=== PATIENT | male | born 1940 | race Caucasian/White ===

== ENCOUNTER 2017-04-24 14:49 | Inpatient (IN) | payer OTHER ==
[~2017-04-24] VITALS: Ht 170.2 cm; Wt 113.2 kg
[2017-04-24] MEDS ORDERED: LISI20TA3 PO (16:16)
[2017-04-24] MEDS ORDERED: SIMV20TA2 PO (16:16)
[2017-04-24] MEDS ORDERED: HYDR25TA4 PO (16:16)
[2017-04-24] MEDS ORDERED: TERA1CAP63 PO (16:16)
[2017-04-24] MEDS ORDERED: BUPR-79 PO (16:16)
[2017-04-24] MEDS ORDERED: FINA5TAB PO (16:16)
[2017-04-24] MEDS ORDERED: ASPI81TA28 PO (16:16)
--- NOTE | 2017-04-24 16:48 | DIAGNOSTIC IMAGING REPORT ---
L RIBS UNILATERAL WITH PA CHEST CLINICAL HISTORY: Left posterior rib pain following fall. COMPARISON STUDY: No previous studies for comparison. FINDINGS: A small left pneumothorax is noted with superior pleural separation of 2.1 cm. No acute rib fracture is identified although these are often occult by radiography. There is no right pneumothorax. Cardiac size is normal. Mediastinal contours are normal. IMPRESSION: Small left pneumothorax. No acute rib fracture identified although these may be occult by radiography. Short-term radiographic follow-up is recommended to reassess the pneumothorax. Findings discussed with Luis Sanchez at time of dictation. Electronically signed by: Jourdan Christian M.D. 04/24/2017 4:47 PM Dictated Date/Time: 04/24/2017 4:41 PM
[2017-04-24] MEDS ORDERED: OXYCODONE HCL IR 5 MG TAB (IMMEDIATE RELEASE) PO STA (16:51)
--- NOTE | 2017-04-24 17:33 | DIAGNOSTIC IMAGING REPORT ---
(CHEST) THORAX WITHOUT CLINICAL HISTORY: 76 years-old Male presenting with L pneumothorax. TECHNIQUE: Multidetector CT imaging of the chest was performed without the use of intravenous contrast. IV contrast: None. A dose lowering technique was used consistent with the principles of ALARA (as low as reasonably achievable). COMPARISON: Radiographs performed earlier the same day.. CT DOSE (mGy.cm): The estimated cumulative dose is 910.79 mGy.cm. 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 On soft tissue windows, normal thyroid and thoracic inlet. No axillary, supraclavicular, or mediastinal lymphadenopathy. Evaluation of the km limited without intravenous contrast. Atherosclerosis of the aorta. Normal heart size. Coronary artery and aortic valve calcification. No pericardial or pleural effusion. Few vague hypodensities at the left hepatic dome indeterminate but possibly cysts. Additional more prominent well-defined hypodensity in the medial left hepatic lobe indeterminate but likely hepatic cyst. Normal liver density. Partially visualized exophytic lesion arising from the left kidney, possibly cyst. On lung windows, small to moderate left pneumothorax. Extrapleural gas noted along the left anterior chest wall at the level of the chest wall musculature. No focal infiltrate or evidence of bleb/bulla the left lung. Vibration lung bases degraded by extensive respiratory motion artifact. Airways patent. On bone windows, acute fracture of the anterior left fourth rib. No additional rib fracture is immediately apparent. This fracture is nondisplaced. IMPRESSION: 1. Small to moderate left pneumothorax. The size of the pneumothorax has not significantly changed since the prior exam allowing for different imaging modalities. 2. Extrapleural gas along the left anterior chest wall associated with nondisplaced acute fracture of the anterior left fourth rib. The report will be called/faxed according to standard departmental protocol. Electronically signed by: Montez Stokes M.D. 04/24/2017 5:32 PM Dictated Date/Time: 04/24/2017 5:25 PM
--- NOTE | 2017-04-24 18:44 | EMERGENCY ROOM VISIT NOTE ---
ED Visit Note First contact with patient: 15:00 I have personally evaluated this patient examined her and reviewed the pertinent labs and data. I have discussed the case with Kris Sanchez, the physician technical administrative assistant and agree with the plan. Please refer to the PA note. This patient comes in after falling and hitting his back he has back pain in the left thoracic area. I chest x-ray was noted to have a small [address] shows a rib fractures with the pneumothorax. It does not appear to be appreciably changed. When I examined him, he appears in no distress. He has no increased work of breathing. He has some mild tender with movement. He did not hit his head. He has no abdominal pain. Given his age and the fact he lives 50 miles from the hospital, I did recommend we admit him for observation. At this point, I do not think he needs a chest tube but he may ultimately need one if the symptoms get worse or this expands. We have consulted Dr. Hernandez and he recommended the hospitalist admit the patient.
[2017-04-24 18:53] LABS: BASO % 0.1 %; BASO ABS # 0.01 K/uL (0-0.2); EOS % 0.4 %; EOS ABS # 0.04 K/uL (0-0.5); HEMOGLOBIN 14.3 g/dL (14.0-18.0); IG# 0.03 K/uL (0.00-0.02); LYMPH % 7.9 %; LYMPH ABS # 0.79 K/uL (1.2-3.4); MEAN CELL VOLUME 97.5 fL (80-100); MEAN CORPUSCULAR HEMOGLOBIN 32.4 pg (25-34); MEAN CORPUSCULAR HGB CONC 33.3 g/dl (32-36); MONO % 7.9 %; MONO ABS # 0.79 K/uL (0.11-0.59); NEUT % 83.4 %; NEUT ABS # 8.39 K/uL (1.4-6.5); PLATELET COUNT 141 K/uL (130-400); RED CELL DISTRIBUTION WIDTH CV 13.2 % (11.5-14.5); RED CELL DISTRIBUTION WIDTH SD 47.4 fL (36.4-46.3); WHITE BLOOD COUNT 10.05 K/uL (4.8-10.8)
--- NOTE | 2017-04-24 19:03 | EMERGENCY ROOM VISIT NOTE ---
History First contact with patient: 15:00 Chief Complaint: FALL Stated Complaint: FALL, SOB, LT SIDED BACK PAIN History of Present Illness The patient is a 76 year old male who presents to the Emergency Room with complaints of left posterior rib pain and mild shortness of breath after slipping and falling in his yard this afternoon while walking his dog. He reports slipping on a frozen puddle of water. The patient reports that he landed directly on his left rib region. He denies any head injury, neck pain or central back pain. He went into the house, and within approximately 3-4 minutes, started to feel short of breath. On the way to the emergency department via private transportation, the patient reported improvement of his shortness of breath. He denies any pain extending to the anterior ribs, chest or abdomen. He does not have any significant worsening pain that he has noticed with breathing. He denies any prior history of rib fractures, and currently rates his discomfort a 5 out of 10. He has not taken any medicines for his pain. Review of Systems 10 system review was performed and was negative except for pertinent positives and negatives as indicated in history of present illness Past Medical/Surgical History Medical Problems: (1) BPH (benign prostatic hyperplasia) (2) Hypercholesterolemia (3) Hypertension Family History Unremarkable Social History Smoking Status: Former Smoker Alcohol Use: occasionally Marital Status: Occupation Status: retired Current/Historical Medications Scheduled Aspirin (Aspirin Ec), 81 MG PO DAILY Bupropion (Wellbutrin Sr), 150 MG PO BID Finasteride (Proscar), 5 MG PO QPM Hydrochlorothiazide (Hctz), 25 MG PO DAILY Lisinopril (Prinivil), 20 MG PO QAM Simvastatin (Zocor), 20 MG PO QPM Terazosin Hcl (Hytrin), 10 MG PO QPM Physical Exam Vital Signs Date Time Temp Pulse Resp B/P (MAP) Pulse Ox O2 Delivery O2 Flow Rate FiO2 04/24/17 18:37 99 Mask 10.0 04/24/17 18:37 83 22 143/84 99 Mask 10.0 04/24/17 18:37 99 Mask 10.0 04/24/17 17:12 67 18 139/79 98 Room Air 04/24/17 14:54 36.4 80 20 159/79 96 Room Air Physical Exam CONSTITUTIONAL: Healthy and well nourished. Alert and oriented X 3 with positive affect. Patient does not appear in any significant distress on initial exam. HEENT: Normocephalic, atraumatic. Pupils equal, round and reactive. No subconjunctival hemorrhage, hemotympanum, epistaxis, raccoon's eyes or Cardoso sign. NECK: Full active range of motion without discomfort. RESPIRATORY: Clear to auscultation bilaterally with no wheezing, crackles, rhonchi or stridor. Deep breathing does cause mild left-sided rib discomfort. CARDIOVASCULAR: Regular rate and rhythm with no murmurs, rubs or gallops. GASTROINTESTINAL: Bowel sounds present in all quadrants. Soft and nontender to palpation. MUSCULOSKELETAL: Examination shows mild tenderness to palpation of a large region of the left posterolateral ribs. No focal tenderness through the central thoracolumbar spine, anterior costochondral joints, shoulder or left lateral hip. Distal pulses are intact. INTEGUMENTARY: No rash or other significant dermatologic conditions noted. NEUROLOGIC: No focal neurologic deficits noted. Upper and lower extremities are sensory intact. Medical Decision & Procedures ER Provider Diagnostic Interpretation: My interpretation of an ECG shows a bigeminal sinus rhythm of 74 bpm with a right bundle branch block. No ST elevations noted. No prior ECGs are available for comparison. My interpretation of left rib x-rays with a PA chest does not show any obvious fractures. A 2.1 cm left apical pneumothorax is noted. Radiologist report is as follows: L RIBS UNILATERAL WITH PA CHEST CLINICAL HISTORY: Left posterior rib pain following fall. COMPARISON STUDY: No previous studies for comparison. FINDINGS: A small left pneumothorax is noted with superior pleural separation of 2.1 cm. No acute rib fracture is identified although these are often occult by radiography. There is no right pneumothorax. Cardiac size is normal. Mediastinal contours are normal. IMPRESSION: Small left pneumothorax. No acute rib fracture identified although these may be occult by radiography. Short-term radiographic follow-up is recommended to reassess the pneumothorax. Findings discussed with Luis Sanchez at time of dictation. Noncontrast CT of the chest shows no acute change in size of the pleural apical pneumothorax size. A nondisplaced anterior left fourth rib fracture is also noted. Radiologist report is as follows: (CHEST) THORAX WITHOUT CLINICAL HISTORY: 76 years-old Male presenting with L pneumothorax. TECHNIQUE: Multidetector CT imaging of the chest was performed without the use of intravenous contrast. IV contrast: None. A dose lowering technique was used consistent with the principles of ALARA (as low as reasonably achievable). COMPARISON: Radiographs performed earlier the same day.. CT DOSE (mGy.cm): The estimated cumulative dose is 910.79 mGy.cm. 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 On soft tissue windows, normal thyroid and thoracic inlet. No axillary, supraclavicular, or mediastinal lymphadenopathy. Evaluation of the km limited without intravenous contrast. Atherosclerosis of the aorta. Normal heart size. Coronary artery and aortic valve calcification. No pericardial or pleural effusion. Few vague hypodensities at the left hepatic dome indeterminate but possibly cysts. Additional more prominent well-defined hypodensity in the medial left hepatic lobe indeterminate but likely hepatic cyst. Normal liver density. Partially visualized exophytic lesion arising from the left kidney, possibly cyst. On lung windows, small to moderate left pneumothorax. Extrapleural gas noted along the left anterior chest wall at the level of the chest wall musculature. No focal infiltrate or evidence of bleb/bulla the left lung. Vibration lung bases degraded by extensive respiratory motion artifact. Airways patent. On bone windows, acute fracture of the anterior left fourth rib. No additional rib fracture is immediately apparent. This fracture is nondisplaced. IMPRESSION: 1. Small to moderate left pneumothorax. The size of the pneumothorax has not significantly changed since the prior exam allowing for different imaging modalities. 2. Extrapleural gas along the left anterior chest wall associated with nondisplaced acute fracture of the anterior left fourth rib. Laboratory Results 04/24/17 18:38 Red Blood Count 4.41, Mean Corpuscular Volume 97.5, Mean Corpuscular Hemoglobin 32.4, Mean Corpuscular Hemoglobin Concent 33.3, Mean Platelet Volume 11.0, Neutrophils (%) (Auto) 83.4, Lymphocytes (%) (Auto) 7.9, Monocytes (%) (Auto) 7.9, Eosinophils (%) (Auto) 0.4, Basophils (%) (Auto) 0.1, Neutrophils # (Auto) 8.39, Lymphocytes # (Auto) 0.79, Monocytes # (Auto) 0.79, Eosinophils # (Auto) 0.04, Basophils # (Auto) 0.01 04/24/17 18:38 Test 04/24/17 18:38 White Blood Count 10.05 K/uL (4.8-10.8) Red Blood Count 4.41 M/uL (4.7-6.1) Hemoglobin 14.3 g/dL (14.0-18.0) Hematocrit 43.0 % (42-52) Mean Corpuscular Volume 97.5 fL (80-100) Mean Corpuscular Hemoglobin 32.4 pg (25-34) Mean Corpuscular Hemoglobin Concent 33.3 g/dl (32-36) Platelet Count 141 K/uL (130-400) Mean Platelet Volume 11.0 fL (7.4-10.4) Neutrophils (%) (Auto) 83.4 % Lymphocytes (%) (Auto) 7.9 % Monocytes (%) (Auto) 7.9 % Eosinophils (%) (Auto) 0.4 % Basophils (%) (Auto) 0.1 % Neutrophils # (Auto) 8.39 K/uL (1.4-6.5) Lymphocytes # (Auto) 0.79 K/uL (1.2-3.4) Monocytes # (Auto) 0.79 K/uL (0.11-0.59) Eosinophils # (Auto) 0.04 K/uL (0-0.5) Basophils # (Auto) 0.01 K/uL (0-0.2) RDW Standard Deviation 47.4 fL (36.4-46.3) RDW Coefficient of Variation 13.2 % (11.5-14.5) Immature Granulocyte % (Auto) 0.3 % Immature Granulocyte # (Auto) 0.03 K/uL (0.00-0.02) Anion Gap 6.0 mmol/L (3-11) Est Creatinine Clear Calc Drug Dose 65.7 ml/min Estimated GFR () 69.8 Estimated GFR (Non- 60.2 BUN/Creatinine Ratio 12.2 (10-20) Calcium Level 9.0 mg/dl (8.5-10.1) Total Creatine Kinase 191 U/L (39-308) The above labs were reviewed. Medications Administered Medications (Trade) Dose Ordered Sig/Robles Route Start Time Stop Time Status Last Admin Dose Admin Oxycodone HCl (Roxicodone Immediate Rel Tab) 5 mg NOW STAT PO 04/24/17 16:51 04/24/17 16:52 DC 04/24/17 17:11 5 MG ED Course Patient history and physical exam were performed. Nurse's notes were reviewed. Vital signs were reviewed and normal. O2 saturation is 96% on room air. The patient is not tachycardic. The patient refused any analgesics on initial exam. Left rib x-rays with a PA chest view shows a 2.1 cm left apical pneumothorax. No other obvious rib fractures are noted. The case was discussed with Dr. Christian, radiologist. A noncontrast CT of the chest was also ordered, showing no change in size of the pneumothorax, and a nondisplaced left anterior fourth rib fracture. The patient did return from initial chest x- ray, he did request of the for pain, and was administered OxyIR [address] does not show any difference in size of the apical pneumothorax. A nondisplaced left fourth anterior rib fracture was noted. The case was also discussed with Dr. Loja, ED attending physician who also performed an exam and discuss further treatment options for the patient. The patient and drove approximately one hour from [facility]. The patient does not have any closer hospitals to his home. We explained that if the patient does have further collapse of the lung, and adverse outcome could certainly occur. We suggested observation with repeat x-rays overnight. Dr. Loja suggested that I try to contact Dr. Miller, cardiothoracic surgeon. Unfortunately we're unable to contact him. I then spoke with Dr. Hernandez, general surgeon instrumentation specialist who suggested observation status, with the patient under the care of the [facility] service. I then discussed the case further with Dr. Del Rosario who came to the emergency department for further evaluation. Prior to transfer of care, an ECG was performed, showing a bigeminal sinus rhythm with right bundle branch block. There was no ST elevation or strain. Remaining labs were also reviewed and grossly normal. The patient was placed on oxygen at 10 L/m. Medical Decision Patient presents with left posterior rib pain and shortness of breath after falling today. Imaging studies today show a small to moderate left apical pneumothorax, and nondisplaced left anterior fourth rib fracture. I do feel that observation is warranted given the distance the patient lives from our facility, and certainly increased risk of further lung collapse. The patient is currently hemodynamically stable and maintaining good O2 saturations on room air. He did exhibit some shortness of breath with ambulation. [place] Drug Monitoring Program Search Results: patient reviewed within database, no issues identified Medication Reconcilliation Current Medication List: was personally reviewed by me Blood Pressure Screening Patient's blood pressure: Normal blood pressure Impression Primary Impression: Left apical pneumothorax Additional Impressions: Closed rib fracture Fall due to slipping on ice or snow Departure Information Referrals Jessika Andino M.D. (MEDICAL) (PCP) Patient Instructions My [facility] Problem Qualifiers Additional Impressions: Closed rib fracture Encounter type: initial encounter Rib fracture type: single rib Laterality : left Qualified Codes: S22.32XA - Fracture of one rib, left side, initial encounter for closed fracture Fall due to slipping on ice or snow Encounter type: initial encounter Qualified Codes: W00.9XXA - Unspecified fall due to ice and snow, initial encounter
--- NOTE | 2017-04-24 19:03 | Medical Consult ---
Consultation Date of Consultation: Apr 24, 2017. Attending Physician: Reason for Consultation: Lt pneumothorax History of Present Illness pt fell on back, Lt side earlier today- presented to ER found on CXR w/ Lt sided pneumothorax and CT showing same w/ rib fx. stable on o2 at present time Social History Smoking Status: Former Smoker Allergies Coded Allergies: Sulfa Antibiotics (Unverified Allergy, Unknown, UNKNOWN, 04/24/17) Review of Systems Constitutional: No fever, No chills Respiratory: + shortness of breath, No cough Cardiovascular: + chest pain Abdomen: No pain, No nausea Physical Exam Date Time Temp Pulse Resp B/P (MAP) Pulse Ox O2 Delivery O2 Flow Rate FiO2 04/24/17 18:37 99 Mask 10.0 04/24/17 18:37 83 22 143/84 99 Mask 10.0 04/24/17 18:37 99 Mask 10.0 04/24/17 17:12 67 18 139/79 98 Room Air 04/24/17 14:54 36.4 80 20 159/79 96 Room Air General Appearance: no apparent distress, + pertinent finding (has O2 in place) Eyes: sclerae normal Respiratory/Chest: no respiratory distress Abdomen/GI: soft Neurologic/Psych: alert Skin: warm/dry Laboratory Results Last 24 Hours Test 04/24/17 18:38 White Blood Count 10.05 K/uL Red Blood Count 4.41 M/uL Hemoglobin 14.3 g/dL Hematocrit 43.0 % Mean Corpuscular Volume 97.5 fL Mean Corpuscular Hemoglobin 32.4 pg Mean Corpuscular Hemoglobin Concent 33.3 g/dl Platelet Count 141 K/uL Mean Platelet Volume 11.0 fL Neutrophils (%) (Auto) 83.4 % Lymphocytes (%) (Auto) 7.9 % Monocytes (%) (Auto) 7.9 % Eosinophils (%) (Auto) 0.4 % Basophils (%) (Auto) 0.1 % Neutrophils # (Auto) 8.39 K/uL Lymphocytes # (Auto) 0.79 K/uL Monocytes # (Auto) 0.79 K/uL Eosinophils # (Auto) 0.04 K/uL Basophils # (Auto) 0.01 K/uL RDW Standard Deviation 47.4 fL RDW Coefficient of Variation 13.2 % Immature Granulocyte % (Auto) 0.3 % Immature Granulocyte # (Auto) 0.03 K/uL Assessment & Plan 04/24/17- adm for observation- O2, pain control recheck CXR in am or if acutely worsens. if remains stable , consider d/c tomorrow.
[2017-04-24 19:19] LABS: POTASSIUM 3.8 mmol/L (3.5-5.1)
[2017-04-24 19:23] LABS: CREATININE 1.17 mg/dl (0.60-1.40)
[2017-04-24 20:19] LABS: ALBUMIN 3.8 gm/dl (3.4-5.0)
[2017-04-24 20:33] VITALS: BP 170/98; PULSE 70; TEMP 36.9
[2017-04-24 20:34] VITALS: O2SAT 99; Ht 170.2 cm; Wt 113.2 kg
[2017-04-24] MEDS ORDERED: PROCHLORPERAZINE INJ 5 MG in SYRINGE 4 ML IV PRN (21:00)
[2017-04-24] MEDS ORDERED: MoRPHine SULFATE 4 MG/ML 1 ML CARP\\VIAL IV PRN (21:00)
[2017-04-24] MEDS ORDERED: KETOROLAC TROMETHAMINE 15 MG/ML VIAL IV. PRN (21:00)
[2017-04-24] MEDS ORDERED: TRAMADOL HCL 50 MG TAB PO PRN (21:00)
[2017-04-24] MEDS ORDERED: IBUPROFEN 200 MG TAB PO PRN (21:00)
[2017-04-24] MEDS ORDERED: ACETAMINOPHEN 325 MG TAB PO PRN (21:00)
[2017-04-24] MEDS ORDERED: LACTATED RINGER'S 1000ML 1,000 ML IV ONE (21:00)
[2017-04-24] MEDS: SIMVASTATIN 20 MG TAB PO SCH (21:38)
[2017-04-24] MEDS: BuPROPion SR 150 MG TABCR PO SCH (21:38)
[2017-04-24] MEDS: FINASTERIDE 5 MG TAB PO SCH (21:39)
[2017-04-24] MEDS: ENOXAPARIN 40 MG/0.4 ML SYR SC SCH (21:54)
[2017-04-24 23:06] VITALS: BP 154/68; PULSE 76; TEMP 37.2; O2SAT 98
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
[2017-04-25] VITALS (7 sets, daily range): BP systolic 121–153; BP diastolic 64–78; PULSE 60–77; TEMP 36.5–37.2; O2SAT 95–100
--- NOTE | 2017-04-25 06:28 | Surgery Progress Note ---
Surgery Progress Note Date of Service Apr 25, 2017. Subjective stable on O2 mask Objective Vital Signs: Date Time Temp Pulse Resp B/P (MAP) Pulse Ox O2 Delivery O2 Flow Rate FiO2 04/25/17 04:00 37.2 62 18 130/69 (89) 100 Room Air 04/25/17 04:00 99 Mask 10.0 04/25/17 00:00 99 Mask 10.0 04/24/17 23:06 37.2 76 20 154/68 (96) 98 Oxymask 10.0 04/24/17 20:34 99 Mask 10.0 04/24/17 20:33 36.9 70 18 170/98 04/24/17 20:01 67 16 160/94 99 Mask 10.0 04/24/17 18:37 99 Mask 10.0 04/24/17 18:37 83 22 143/84 99 Mask 10.0 04/24/17 18:37 99 Mask 10.0 04/24/17 17:12 67 18 139/79 98 Room Air 04/24/17 14:54 36.4 80 20 159/79 96 Room Air General Appearance: no apparent distress Respiratory/Chest: no respiratory distress Laboratory Results: Results Past 24 Hours Test 04/24/17 18:38 04/25/17 04:44 Range/Units White Blood Count 10.05 4.8-10.8 K/uL Red Blood Count 4.41 4.7-6.1 M/uL Hemoglobin 14.3 14.0-18.0 g/dL Hematocrit 43.0 42-52 % Mean Corpuscular Volume 97.5 80-100 fL Mean Corpuscular Hemoglobin 32.4 25-34 pg Mean Corpuscular Hemoglobin Concent 33.3 32-36 g/dl Platelet Count 141 130-400 K/uL Mean Platelet Volume 11.0 7.4-10.4 fL Neutrophils (%) (Auto) 83.4 % Lymphocytes (%) (Auto) 7.9 % Monocytes (%) (Auto) 7.9 % Eosinophils (%) (Auto) 0.4 % Basophils (%) (Auto) 0.1 % Neutrophils # (Auto) 8.39 1.4-6.5 K/uL Lymphocytes # (Auto) 0.79 1.2-3.4 K/uL Monocytes # (Auto) 0.79 0.11-0.59 K/uL Eosinophils # (Auto) 0.04 0-0.5 K/uL Basophils # (Auto) 0.01 0-0.2 K/uL RDW Standard Deviation 47.4 36.4-46.3 fL RDW Coefficient of Variation 13.2 11.5-14.5 % Immature Granulocyte % (Auto) 0.3 % Immature Granulocyte # (Auto) 0.03 0.00-0.02 K/uL Prothrombin Time 10.5 9.0-12.0 SECONDS Prothromb Time International Ratio 1.0 0.9-1.1 Sodium Level 140 136-145 mmol/L Potassium Level 3.8 3.5-5.1 mmol/L Chloride Level 103 98-107 mmol/L Carbon Dioxide Level 31 21-32 mmol/L Anion Gap 6.0 3-11 mmol/L Blood Urea Nitrogen 14 7-18 mg/dl Creatinine 1.17 0.60-1.40 mg/dl Est Creatinine Clear Calc Drug Dose 65.7 ml/min Estimated GFR () 69.8 Estimated GFR (Non- 60.2 BUN/Creatinine Ratio 12.2 10-20 Random Glucose 111 70-99 mg/dl Calcium Level 9.0 8.5-10.1 mg/dl Magnesium Level 2.0 1.8-2.4 mg/dl Total Bilirubin 0.3 0.2-1 mg/dl Direct Bilirubin 0.1 0-0.2 mg/dl Aspartate Amino Transf (AST/SGOT) 24 15-37 U/L Alanine Aminotransferase (ALT/SGPT) 28 12-78 U/L Alkaline Phosphatase 73 45-117 U/L Total Creatine Kinase 191 39-308 U/L Troponin I 0.033 0-0.045 ng/ml Total Protein 7.0 6.4-8.2 gm/dl Albumin 3.8 3.4-5.0 gm/dl Lipase 375 73-393 U/L Assessment & Plan 04/25/17- Lt pneumothorax from fall/ rib fx probably ok with O2 NC- check cxr discussed with Dr Miller- will try to avoid chest tube- may need additional day in hospital checked CXR- pneumo a little larger- will need to stay in hospital until stable. No chest tube unless absolutely necessary. Cont O2
[2017-04-25 07:34] LABS: BASO % 0.3 %; BASO ABS # 0.02 K/uL (0-0.2); EOS % 4.2 %; HEMOGLOBIN 12.9 g/dL (14.0-18.0); IG# 0.02 K/uL (0.00-0.02); LYMPH ABS # 1.13 K/uL (1.2-3.4); MEAN CELL VOLUME 98.3 fL (80-100); MEAN CORPUSCULAR HEMOGLOBIN 31.7 pg (25-34); MEAN CORPUSCULAR HGB CONC 32.3 g/dl (32-36); MEAN PLATELET VOLUME 10.6 fL (7.4-10.4); MONO ABS # 0.92 K/uL (0.11-0.59); NEUT % 66.2 %; NEUT ABS # 4.69 K/uL (1.4-6.5); PLATELET COUNT 117 K/uL (130-400); RED CELL DISTRIBUTION WIDTH CV 13.5 % (11.5-14.5); RED CELL DISTRIBUTION WIDTH SD 48.6 fL (36.4-46.3); WHITE BLOOD COUNT 7.08 K/uL (4.8-10.8)
[2017-04-25] MEDS: BuPROPion SR 150 MG TABCR PO SCH ×2 (08:12→17:53)
[2017-04-25] MEDS: LISINOPRIL 20 MG TAB PO SCH (08:12)
[2017-04-25] MEDS: ASPIRIN 81 MG ECTAB PO SCH (08:13)
--- NOTE | 2017-04-25 09:22 | DIAGNOSTIC IMAGING REPORT ---
CHEST 2 VIEWS ROUTINE CLINICAL HISTORY: Assess pneumothorax. COMPARISON STUDY: Chest CT April 24, 2017 5:04 PM. FINDINGS: A moderate left pneumothorax has mildly increased in size since CT of April 24, 2017. Superior pleural separation measures 3.4 cm. Mild left lower lung opacity suggests atelectasis. Cardiomediastinal silhouette is stable. There is no evidence for pulmonary edema. There is no right pneumothorax. There may be a trace left pleural effusion. IMPRESSION: Mild increase in size of a moderate left pneumothorax since CT of April 24, 2017. Electronically signed by: Jourdan Christian M.D. 04/25/2017 9:20 AM Dictated Date/Time: 04/25/2017 9:16 AM
--- NOTE | 2017-04-25 10:39 | Progress Note ---
Internal Med Progress Note Date of Service: Apr 25, 2017. Provider Documentation: SUBJECTIVE: Seen and examined at bedside Reports left sided pleuritic chest pain Denies SOB, dizziness No other complaints Family at bedside OBJECTIVE: Vital Signs-as noted below Physical Exam: General Appearance:Obese, no apparent distress Head: normocephalic, Atraumatic Eyes: normal inspection, EOMI, PERRL Neck: supple, Trachea midline Respiratory/Chest: Decreased breath sounds on left , CTA Cardiovascular: S1, S2, No murmur Abdomen/GI:Soft, Non tender, Bowel sounds present Extremities/Musculoskelatal:normal inspection, no edema Neurologic/Psych:AAOX3, grossly no focal neurological deficits Skin: normal color, warm Lab data as noted below. ASSESSMENT & PLAN: Left Pneumothorax 2/2 Rib # S/P Mechanical Fall Monitor in Tele CT: Small to moderate left pneumothorax. Nondisplaced acute fracture of the anterior left fourth rib. Oxygen support Daily CXR Pain control May need chest tube if Pneumothorax worsens Appreciate Surgery Input HTN: Continue Lisinopril Also on Hytrin monitor HLP: Continue statin BPH: Continue Hytrin Past tobacco abuse. DVT Px: Lovenox SQ Code Status: Full Code Disposition: Expect to discharge home when stable Vital Signs: Date Time Temp Pulse Resp B/P (MAP) Pulse Ox O2 Delivery O2 Flow Rate FiO2 04/25/17 08:00 37.0 63 18 125/71 (89) 95 Room Air 04/25/17 08:00 Nasal Cannula 4.0 04/25/17 04:00 37.2 62 18 130/69 (89) 100 Room Air 04/25/17 04:00 99 Mask 10.0 04/25/17 00:00 99 Mask 10.0 04/24/17 23:06 37.2 76 20 154/68 (96) 98 Oxymask 10.0 04/24/17 20:34 99 Mask 10.0 04/24/17 20:33 36.9 70 18 170/98 04/24/17 20:01 67 16 160/94 99 Mask 10.0 04/24/17 18:37 99 Mask 10.0 04/24/17 18:37 83 22 143/84 99 Mask 10.0 04/24/17 18:37 99 Mask 10.0 04/24/17 17:12 67 18 139/79 98 Room Air 04/24/17 14:54 36.4 80 20 159/79 96 Room Air Lab Results: Results Past 24 Hours Test 04/24/17 18:38 04/25/17 06:55 Range/Units White Blood Count 10.05 7.08 4.8-10.8 K/uL Red Blood Count 4.41 4.07 4.7-6.1 M/uL Hemoglobin 14.3 12.9 14.0-18.0 g/dL Hematocrit 43.0 40.0 42-52 % Mean Corpuscular Volume 97.5 98.3 80-100 fL Mean Corpuscular Hemoglobin 32.4 31.7 25-34 pg Mean Corpuscular Hemoglobin Concent 33.3 32.3 32-36 g/dl Platelet Count 141 117 130-400 K/uL Mean Platelet Volume 11.0 10.6 7.4-10.4 fL Neutrophils (%) (Auto) 83.4 66.2 % Lymphocytes (%) (Auto) 7.9 16.0 % Monocytes (%) (Auto) 7.9 13.0 % Eosinophils (%) (Auto) 0.4 4.2 % Basophils (%) (Auto) 0.1 0.3 % Neutrophils # (Auto) 8.39 4.69 1.4-6.5 K/uL Lymphocytes # (Auto) 0.79 1.13 1.2-3.4 K/uL Monocytes # (Auto) 0.79 0.92 0.11-0.59 K/uL Eosinophils # (Auto) 0.04 0.30 0-0.5 K/uL Basophils # (Auto) 0.01 0.02 0-0.2 K/uL RDW Standard Deviation 47.4 48.6 36.4-46.3 fL RDW Coefficient of Variation 13.2 13.5 11.5-14.5 % Immature Granulocyte % (Auto) 0.3 0.3 % Immature Granulocyte # (Auto) 0.03 0.02 0.00-0.02 K/uL Prothrombin Time 10.5 9.0-12.0 SECONDS Prothromb Time International Ratio 1.0 0.9-1.1 Sodium Level 140 136-145 mmol/L Potassium Level 3.8 3.5-5.1 mmol/L Chloride Level 103 98-107 mmol/L Carbon Dioxide Level 31 21-32 mmol/L Anion Gap 6.0 3-11 mmol/L Blood Urea Nitrogen 14 7-18 mg/dl Creatinine 1.17 0.60-1.40 mg/dl Est Creatinine Clear Calc Drug Dose 65.7 ml/min Estimated GFR () 69.8 Estimated GFR (Non- 60.2 BUN/Creatinine Ratio 12.2 10-20 Random Glucose 111 70-99 mg/dl Calcium Level 9.0 8.5-10.1 mg/dl Magnesium Level 2.0 1.8-2.4 mg/dl Total Bilirubin 0.3 0.2-1 mg/dl Direct Bilirubin 0.1 0-0.2 mg/dl Aspartate Amino Transf (AST/SGOT) 24 15-37 U/L Alanine Aminotransferase (ALT/SGPT) 28 12-78 U/L Alkaline Phosphatase 73 45-117 U/L Total Creatine Kinase 191 39-308 U/L Troponin I 0.033 0-0.045 ng/ml Total Protein 7.0 6.4-8.2 gm/dl Albumin 3.8 3.4-5.0 gm/dl Lipase 375 73-393 U/L
[2017-04-25] MEDS: SIMVASTATIN 20 MG TAB PO SCH (21:03)
[2017-04-25] MEDS: DOCUSATE SODIUM/SENNA 50/8.6MG TAB PO SCH (21:03)
[2017-04-25] MEDS: FINASTERIDE 5 MG TAB PO SCH (21:04)
[2017-04-25] MEDS: ENOXAPARIN 40 MG/0.4 ML SYR SC SCH (21:07)
--- NOTE | 2017-04-26 06:31 | Surgery Progress Note ---
Surgery Progress Note Date of Service Apr 26, 2017. Subjective feels ok, slept well Objective Vital Signs: Date Time Temp Pulse Resp B/P (MAP) Pulse Ox O2 Delivery O2 Flow Rate FiO2 04/25/17 23:45 Nasal Cannula 04/25/17 23:05 36.7 63 16 121/71 (88) 99 Nasal Cannula 4.0 04/25/17 18:00 36.6 60 16 153/78 (103) 100 Nasal Cannula 4.0 04/25/17 18:00 Nasal Cannula 4.0 04/25/17 16:00 Nasal Cannula 4.0 04/25/17 15:12 37.0 77 16 124/76 (92) 97 Nasal Cannula 4.0 04/25/17 12:12 36.5 60 16 126/64 (84) 97 Nasal Cannula 04/25/17 12:00 Nasal Cannula 4.0 04/25/17 08:00 37.0 63 18 125/71 (89) 95 Room Air 04/25/17 08:00 Nasal Cannula 4.0 General Appearance: no apparent distress Respiratory/Chest: no respiratory distress Laboratory Results: Results Past 24 Hours Test 04/25/17 06:55 04/26/17 05:54 Range/Units White Blood Count 7.08 4.8-10.8 K/uL Red Blood Count 4.07 4.7-6.1 M/uL Hemoglobin 12.9 14.0-18.0 g/dL Hematocrit 40.0 42-52 % Mean Corpuscular Volume 98.3 80-100 fL Mean Corpuscular Hemoglobin 31.7 25-34 pg Mean Corpuscular Hemoglobin Concent 32.3 32-36 g/dl Platelet Count 117 130-400 K/uL Mean Platelet Volume 10.6 7.4-10.4 fL Neutrophils (%) (Auto) 66.2 % Lymphocytes (%) (Auto) 16.0 % Monocytes (%) (Auto) 13.0 % Eosinophils (%) (Auto) 4.2 % Basophils (%) (Auto) 0.3 % Neutrophils # (Auto) 4.69 1.4-6.5 K/uL Lymphocytes # (Auto) 1.13 1.2-3.4 K/uL Monocytes # (Auto) 0.92 0.11-0.59 K/uL Eosinophils # (Auto) 0.30 0-0.5 K/uL Basophils # (Auto) 0.02 0-0.2 K/uL RDW Standard Deviation 48.6 36.4-46.3 fL RDW Coefficient of Variation 13.5 11.5-14.5 % Immature Granulocyte % (Auto) 0.3 % Immature Granulocyte # (Auto) 0.02 0.00-0.02 K/uL Assessment & Plan 04/26/17- stable, looks very good- breathing well will check cxr- if stable - d/c home with f/u Dr Miller on Thu/Thu this week CXR much improved- ok to d/c home with plan above 04/25/17- Lt pneumothorax from fall/ rib fx probably ok with O2 NC- check cxr discussed with Dr Miller- will try to avoid chest tube- may need additional day in hospital checked CXR- pneumo a little larger- will need to stay in hospital until stable. No chest tube unless absolutely necessary. Cont O2 04/25/17- Lt pneumothorax from fall/ rib fx probably ok with O2 NC- check cxr discussed with Dr Miller- will try to avoid chest tube- may need additional day in hospital checked CXR- pneumo a little larger- will need to stay in hospital until stable. No chest tube unless absolutely necessary. Cont O2
--- NOTE | 2017-04-26 06:35 | Discharge Instructions ---
Discharge Instructions Date of Service Apr 26, 2017. Admission Reason for Admission: Pnuemothorax Discharge Discharge Diagnosis / Problem: [place]othorax Discharge Goals Goal(s): Decrease discomfort, Improve function Activity Recommendations Activity Limitations: as noted below Lifting Limitations: no more than 10 pounds Exercise/Sports Limitations: until after follow-up appointment May Resume Sexual Activity: after follow-up appointment Shower/Bathe: no limitations Driving or Machine Use: resume 3 days after discharge . Current Hospital Diet Patient's current hospital diet: AHA Diet (Heart Healthy) Discharge Diet Recommended Diet: Regular Diet Pending Studies Studies pending at discharge: no Medical Emergencies . Who to Call and When: Medical Emergencies: If at any time you feel your situation is an emergency, please call 911 immediately. . Non-Emergent Contact Non-Emergency issues call your: Primary Care Provider, Surgeon . "Provider Documentation" section prepared by Kush Hernandez. . VTE Core Measure Inpt VTE Proph given/why not?: SCD's
[2017-04-26 06:52] LABS: HEMOGLOBIN 12.7 g/dL (14.0-18.0); MEAN CELL VOLUME 98.3 fL (80-100); MEAN CORPUSCULAR HEMOGLOBIN 30.5 pg (25-34); MEAN PLATELET VOLUME 10.9 fL (7.4-10.4); PLATELET COUNT 122 K/uL (130-400); RED CELL DISTRIBUTION WIDTH CV 13.6 % (11.5-14.5); RED CELL DISTRIBUTION WIDTH SD 48.5 fL (36.4-46.3); WHITE BLOOD COUNT 6.37 K/uL (4.8-10.8)
[2017-04-26 07:26] LABS: CALCIUM 8.9 mg/dl (8.5-10.1); CREATININE 0.98 mg/dl (0.60-1.40); POTASSIUM 3.6 mmol/L (3.5-5.1)
[2017-04-26 07:30] VITALS: BP 136/77; PULSE 59; TEMP 36.8; O2SAT 96
--- NOTE | 2017-04-26 07:32 | DIAGNOSTIC IMAGING REPORT ---
CHEST ONE VIEW PORTABLE CLINICAL HISTORY: 76 years-old Male presenting with assess pneumo. TECHNIQUE: Portable upright AP view of the chest was obtained. COMPARISON: 04/25/2017. FINDINGS: Atherosclerosis of the aortic arch. Cardiac silhouette normal in size. Lungs clear. Significant interval decreased size of left pneumothorax, which now has a pleural separation of 8 mm at the apex. Osseous structures normal. Upper abdomen normal. IMPRESSION: 1. Significant interval decrease in size of the now small left apical pneumothorax. Electronically signed by: Montez Stokes M.D. 04/26/2017 7:30 AM Dictated Date/Time: 04/26/2017 7:29 AM
[2017-04-26] MEDS: ASPIRIN 81 MG ECTAB PO SCH (08:56)
[2017-04-26] MEDS: BuPROPion SR 150 MG TABCR PO SCH (08:56)
[2017-04-26] MEDS: LISINOPRIL 20 MG TAB PO SCH (08:57)
[2017-04-26] MEDS: DOCUSATE SODIUM/SENNA 50/8.6MG TAB PO SCH (08:57)
[2017-04-26 11:17] VITALS: PULSE 59; O2SAT 96
--- NOTE | 2017-04-26 11:53 | Progress Note ---
Internal Med Progress Note Date of Service: Apr 26, 2017. Provider Documentation: SUBJECTIVE: Seen and examined at bedside Only has mild soreness on back Denies SOB, dizziness No other complaints Family at bedside OBJECTIVE: Vital Signs-as noted below Physical Exam: General Appearance:Obese, no apparent distress Head: normocephalic, Atraumatic Eyes: normal inspection, EOMI, PERRL Neck: supple, Trachea midline Respiratory/Chest: Normal breath sounds on left , CTA Cardiovascular: S1, S2, No murmur Abdomen/GI:Soft, Non tender, Bowel sounds present Extremities/Musculoskelatal:normal inspection, no edema Neurologic/Psych:AAOX3, grossly no focal neurological deficits Skin: normal color, warm Lab data as noted below. ASSESSMENT & PLAN: Left Pneumothorax 2/2 Rib # S/P Mechanical Fall Monitor in Tele CT: Small to moderate left pneumothorax. Nondisplaced acute fracture of the anterior left fourth rib. Oxygen support Daily CXR Pain control Repeat CXR: Pneumothorax much improved Appreciate Surgery Input Needs follow up with CT surgery as outpatient HTN: Continue Lisinopril Also on Hytrin monitor HLP: Continue statin BPH: Continue Hytrin Past tobacco abuse. DVT Px: Lovenox SQ Code Status: Full Code Disposition: Plan to discharge home today Follow up with (CT surgery) in 2-3 days as advised Follow up with your PCP on 04/30/17 at 11:05AM Seek immediate medical attention if your symptoms reoccur or worsen Vital Signs: Date Time Temp Pulse Resp B/P (MAP) Pulse Ox O2 Delivery O2 Flow Rate FiO2 04/26/17 11:17 59 96 04/26/17 07:53 Room Air 04/26/17 07:30 36.8 59 16 136/77 (96) 96 Nasal Cannula 1.0 04/25/17 23:45 Nasal Cannula 04/25/17 23:05 36.7 63 16 121/71 (88) 99 Nasal Cannula 4.0 04/25/17 18:00 36.6 60 16 153/78 (103) 100 Nasal Cannula 4.0 04/25/17 18:00 Nasal Cannula 4.0 04/25/17 16:00 Nasal Cannula 4.0 04/25/17 15:12 37.0 77 16 124/76 (92) 97 Nasal Cannula 4.0 04/25/17 12:12 36.5 60 16 126/64 (84) 97 Nasal Cannula 04/25/17 12:00 Nasal Cannula 4.0 Lab Results: Results Past 24 Hours Test 04/26/17 05:54 Range/Units White Blood Count 6.37 4.8-10.8 K/uL Red Blood Count 4.17 4.7-6.1 M/uL Hemoglobin 12.7 14.0-18.0 g/dL Hematocrit 41.0 42-52 % Mean Corpuscular Volume 98.3 80-100 fL Mean Corpuscular Hemoglobin 30.5 25-34 pg Mean Corpuscular Hemoglobin Concent 31.0 32-36 g/dl RDW Standard Deviation 48.5 36.4-46.3 fL RDW Coefficient of Variation 13.6 11.5-14.5 % Platelet Count 122 130-400 K/uL Mean Platelet Volume 10.9 7.4-10.4 fL Sodium Level 140 136-145 mmol/L Potassium Level 3.6 3.5-5.1 mmol/L Chloride Level 104 98-107 mmol/L Carbon Dioxide Level 31 21-32 mmol/L Anion Gap 5.0 3-11 mmol/L Blood Urea Nitrogen 11 7-18 mg/dl Creatinine 0.98 0.60-1.40 mg/dl Est Creatinine Clear Calc Drug Dose 77.1 ml/min Estimated GFR () 86.5 Estimated GFR (Non- 74.6 BUN/Creatinine Ratio 11.7 10-20 Random Glucose 96 70-99 mg/dl Calcium Level 8.9 8.5-10.1 mg/dl Magnesium Level 2.1 1.8-2.4 mg/dl
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
[2017-04-26 12:03] VITALS: BP 136/77; PULSE 59; TEMP 36.8; O2SAT 96
== END 2017-04-26 12:22 | disposition home or self-care (01) | DRG 200 ==
LOC: C.EDB 14:50 → C.2T 19:42 → ENRESERV 19:52 → C.MSW 04-25 18:06
PROVIDERS: ADMIT Internal Medicine; ATTEND Internal Medicine
DX: S27.0XXA Traumatic pneumothorax, initial encounter (principal); S22.32XA Fracture of one rib, left side, initial encounter for closed fracture; Z79.82 Long term (current) use of aspirin; I10 Essential (primary) hypertension; E78.5 Hyperlipidemia, unspecified; N40.0 Benign prostatic hyperplasia without lower urinary tract symptoms; F39 Unspecified mood [affective] disorder; Z82.49 Family history of ischemic heart disease and other diseases of the circulatory system; Z87.891 Personal history of nicotine dependence; W01.0XXA Fall on same level from slipping, tripping and stumbling without subsequent striking against object, initial encounter

== ENCOUNTER → 2017-04-28 | Outpatient (CLI) | payer OTHER ==
[~2017-04-28] MED LIST: ASPI81TA28 PO; BUPR-79 PO; FINA5TAB PO; HYDR25TA4 PO; LISI20TA3 PO; SIMV20TA2 PO; TERA1CAP63 PO
--- NOTE | 2017-04-28 13:14 | DIAGNOSTIC IMAGING REPORT ---
CHEST 2 VIEWS ROUTINE CLINICAL HISTORY: J93.9 [id number] COMPARISON STUDY: 04/26/2017 FINDINGS: The left apical pneumothorax has a pleural separation of 14 mm. The heart is normal in size. There is no focal pulmonary consolidation. There is a small right pleural effusion.[ IMPRESSION: 1. Slight interval increase in the size of the small left apical pneumothorax with a pleural separation 14 mm 2. Small right pleural effusion Electronically signed by: Krzysztof Vigil M.D. 04/28/2017 1:12 PM Dictated Date/Time: 04/28/2017 1:08 PM
== END | disposition home or self-care (01) ==
LOC: C.RAD1850 12:55
PROVIDERS: ATTEND Surgery
DX: J93.9 Pneumothorax, unspecified (principal); J90 Pleural effusion, not elsewhere classified

== ENCOUNTER → 2017-05-07 | Outpatient (CLI) | payer OTHER ==
--- NOTE | 2017-05-07 09:49 | DIAGNOSTIC IMAGING REPORT ---
CHEST 2 VIEWS ROUTINE HISTORY: 76 years-old Male J93.9 [id number] follow-up study in a patient with pneumothorax. COMPARISON: Chest radiographs 04/28/2017 and 04/26/2017 TECHNIQUE: PA and lateral views of the chest FINDINGS: Cardiomediastinal and hilar silhouettes are within normal limits. Atherosclerosis of the aorta. There are previously noted small left apical pneumothorax is no longer identified. No pleural effusion, focal airspace consolidation or overt pulmonary edema. Degenerative changes are seen within the spine and shoulders. IMPRESSION: 1. No acute process of the chest. 2. Resolution of the previously noted small left apical pneumothorax. The above report was generated using voice recognition software. It may contain grammatical, syntax or spelling errors. Electronically signed by: Bronson Hurd M.D. 05/07/2017 9:48 AM Dictated Date/Time: 05/07/2017 9:46 AM
== END | disposition home or self-care (01) ==
LOC: C.RAD1850 09:34
PROVIDERS: ATTEND Physician Assistant
DX: J93.9 Pneumothorax, unspecified (principal)

== ENCOUNTER 2023-04-15 14:17 | Inpatient (IN) ==
--- NOTE | 2023-04-15 14:51 | Emergency Department Note ---
Impression & Plan New onset a-fib, Syncope and collapse ED Provider Note NAME: ADRIANE GUNDERSON AGE: 82 SEX: M : 1940 ARRIVES VIA: Ambulance INFORMANT: Patient, ED PROVIDER(S): Orlando Miles MD CHIEF COMPLAINT: Syncope MEDICAL DECISION MAKING: Patient presents due to concern for syncopal event. Unknown is whether the patient had syncope versus seizure. The patient was noted to be in A-fib on the monitor which is new for the patient. IV was established and blood work was obtained. EKG confirms A-fib. CT of the head also ordered. Patient's blood work shows a normal white counts with mild anemia hemoglobin of 13 platelet count is unremarkable. The patient's kidney function unremarkable BSG 128 but nonfasting. Initial troponin 24. BNP is not elevated TSH normal. The patient urinalysis does not show evidence of obvious blood or infection. CT head negative. Patient was started on heparin. I did inform the patient patient's family bedside with findings and plan of care they are comfortable with this plan. I did speak with Dr. Peña and the patient was admitted to the medicine service. Critical Care: I have personally spent 37 minutes of critical care time in direct management of this patient. This includes bedside care, interpretation of diagnostic studies, and testing, discussion with consultants, patient, and family members, and other require inpatient management activities. This 37 minutes is in excess of all separately billable procedures. Discussion w/ other healthcare providers: Dr. Peña inpatient medicine service Prior /Outside records reviewed: None Differential diagnosis: Vasovagal event, dehydration, infection, hypoglycemia, electrolyte abnormalities, arrhythmia, pulmonary embolism, seizure among others were considered. Diagnostics, as interpreted by me: ECG: A-fib, rate of 62, wide QRS, right bundle branch block pattern, left axis deviation. No obvious ST elevations Cardiac monitoring: An order was placed for continuous cardiac monitoring. The monitor shows a rate of 65 with irregularly irregular rhythm. Patient was placed on pulse oximetry Medical decision rules: None Imaging studies: I informally interpreted the patient's chest x-ray which does not show obvious pneumonia or pneumothorax with formal report to follow. Informally interpreted the patient's CT head which does not show obvious ICH HPI: Patient presents due to concern for an episode of syncope. Patient denies any chest pains but has suffered from chronic shortness of breath which has been ongoing. Patient denies any falls or trauma. Patient reportedly was sitting down to eat some lunch as they were getting grilled cheese and chicken Rasheeda. The patient did not have any choking episode but the states that the patient's head rolled back and had upper extremity shaking unknown as to whether or not he lower extremity shaking. This lasted for approximately 30 seconds in duration. She thought that maybe he was struggling to breathe and tried to bring his head up a little bit. Patient then came to and was reportedly confused. No prior history of any stroke or seizure. Patient states that he does feel little bit nauseous but no vomiting. Patient denies any numbness tingling or focal weakness. Chronic shortness of breath but this is unchanged and currently not at rest. He does have exertional symptoms but denies orthopnea. Patient denies any prior history of heart or lung disease. Non- smoker. Patient denies any alcohol or drug use. PAST MEDICAL HISTORY: See Below PAST SURGICAL HISTORY: See Below SOCIAL HISTORY: See Below HOME MEDICATIONS: See Below ALLERGIES: See Below VITALS: See Below PHYSICAL EXAMINATION: GENERAL: NAD, non-toxic. EYE EXAM: Normal conjunctiva. PERRL, no anisocoria and EOM's grossly intact w/o pain. OROPHARYNX: Moist mucus membranes, grossly normal dentition. NECK: Supple, no nuchal rigidity, no adenopathy, non-tender. No signs of meningismus. FROM of the neck with good chin to chest and neck extension. No stridor. LUNGS: Clear to auscultation. Normal chest wall mechanics. HEART: Irregular irregular, no MRG. ABDOMEN: Abdomen soft, non-tender, no masses, no rebound or guarding. BACK: No CVA TTP. SKIN: No rashes and no bruising. UPPER EXTREMITIES: Upper extremities are grossly normal. Resting tremor of the right upper extremity LOWER EXTREMITIES: Grossly normal, 1+ bilateral lower extremity edema. NEURO EXAM: A&O x3, cranial nerves II-XII grossly intact, normal speech, moves all 4 extremities. Good [id number], no drift and no sensory deficits. Past Med/Surg History Medical History Morbid obesity Dyslipidemia CKD (chronic kidney disease), stage III BPH (benign prostatic hyperplasia) Hypertension Hypercholesterolemia Surgical History H/O ventral hernia repair H/O cataract removal with insertion of prosthetic lens Social History Smoking Status: Former smoker Second Hand Exposure: No; Do You Dip or Chew Tobacco: No; Tobacco Cessation Education Requested by Patient: No Hx Alcohol Use: No Hx Substance Use: No Preferred Language: Vincentian Communication Ability: Effective Interior Design Professional Required: No Beliefs That Will Affect Care: None Current Living Situation: Spouse Other Information That Helps Us Care for You: No Feels Safe at Home: Yes Safety Concerns: Feels Safe At This Time Assistive Devices: None Allergies Allergies Allergy/AdvReac Type Severity Reaction Status Date / Time Sulfa (Sulfonamide Allergy Unknown UNKNOWN Unverified 04/15/23 15:42 Antibiotics) Home Meds Home Medications Medication Instructions Recorded Confirmed bupropion HCl 150 mg tablet,12 hr 300 mg PO QAM 04/15/23 04/15/23 sustained-release finasteride 5 mg tablet 5 mg PO QPM 04/15/23 04/15/23 hydrochlorothiazide 25 mg tablet 25 mg PO DAILY 04/15/23 04/15/23 lisinopril 20 mg tablet 20 mg PO QAM 04/15/23 04/15/23 simvastatin 20 mg tablet 20 mg PO HS 04/15/23 04/15/23 terazosin 10 mg capsule 10 mg PO HS 04/15/23 04/15/23 Results & Data (ED) Vital Signs Vital Signs - 24 hr 04/15/23 14:30 04/15/23 14:31 04/15/23 15:11 Temperature 36.4 C L Temperature Source Oral Pulse Rate 72 63 65 Pulse Rate from SpO2 Sensor Pulse Rhythm Regular Regular Respiratory Rate 24 20 Respiratory Effort / Characteristics Non-Labored Spontaneous Respiratory Depth Normal Respiratory Pattern Blood Pressure 157/71 H Blood Pressure Mean 99 Pulse Oximetry 95 95 Oxygen Delivery Method Room Air Sepsis Recent Fever Within 48 Hours No Sepsis New/Unexplained Change in Mental Status No Sepsis Action Taken by Nursing No Action Required 04/15/23 15:37 04/15/23 16:37 04/15/23 16:40 Temperature Temperature Source Pulse Rate 67 71 Pulse Rate from SpO2 Sensor 58 L 71 Pulse Rhythm Respiratory Rate 18 19 Respiratory Effort / Characteristics Non-Labored Spontaneous Respiratory Depth Normal Respiratory Pattern Regular Blood Pressure 126/80 172/78 H Blood Pressure Mean 95 109 Pulse Oximetry 96 95 Oxygen Delivery Method Sepsis Recent Fever Within 48 Hours Sepsis New/Unexplained Change in Mental Status Sepsis Action Taken by Nursing 04/15/23 17:00 04/15/23 17:30 Temperature Temperature Source Pulse Rate 67 60 Pulse Rate from SpO2 Sensor 64 66 Pulse Rhythm Respiratory Rate 20 17 Respiratory Effort / Characteristics Respiratory Depth Respiratory Pattern Blood Pressure 145/82 H 145/82 H Blood Pressure Mean 103 103 Pulse Oximetry 95 95 Oxygen Delivery Method Sepsis Recent Fever Within 48 Hours Sepsis New/Unexplained Change in Mental Status Sepsis Action Taken by [facility] Medications Current Medication List: was personally reviewed by me Laboratory Data Attestation: I reviewed the patient's lab results. 04/16/23 06:22 04/16/23 06:22 Lab Results 04/15/23 04/15/23 04/15/23 Range/Units 14:34 15:50 15:52 WBC Cancelled 6.30 RBC Cancelled 4.15 L Hgb Cancelled 13.0 L Hct Cancelled 40.8 L MCV Cancelled 98.3 MCH Cancelled 31.3 MCHC Cancelled 31.9 L RDW Std Deviation Cancelled 46.9 H RDW Coeff of Frank Cancelled 12.9 Plt Count Cancelled 131 MPV Cancelled 10.6 Immature Gran % (Auto) Cancelled 0.3 Neut % (Auto) Cancelled 82.8 Lymph % (Auto) Cancelled 8.9 [place] % (Auto) Cancelled 7.1 Eos % (Auto) Cancelled 0.3 Baso % (Auto) Cancelled 0.6 Neut # (Auto) Cancelled 5.21 Lymph # (Auto) Cancelled 0.56 L [place] # (Auto) Cancelled 0.45 Eos # (Auto) Cancelled 0.02 Baso # (Auto) Cancelled 0.04 Immature Gran # (Auto) Cancelled 0.02 Absolute Nucleated RBC Cancelled Nucleated RBC % (auto) Cancelled Neutrophils % (Manual) Cancelled Band Neutrophils % Cancelled Lymphocytes % (Manual) Cancelled Prolymphocyte % Cancelled Reactive Lymphs % (Man) Cancelled Monocytes % (Manual) Cancelled Eosinophils % (Manual) Cancelled Basophils % (Manual) Cancelled Metamyelocytes % (Man) Cancelled Myelocytes % (Man) Cancelled Promyelocytes % (Man) Cancelled Blast Cells % (Manual) Cancelled Plasma Cell % (Manual) Cancelled Other Cells % Cancelled Nucleated RBC % Cancelled Neutrophils # (Manual) Cancelled Band Neutrophils # Cancelled Total Absolute Neuts Cancelled Lymphocytes # (Manual) Cancelled Prolymphocyte # Cancelled Reactive Lymphs # Cancelled Total Abs Lymphocytes Cancelled Monocytes # (Manual) Cancelled Eosinophils # (Manual) Cancelled Basophils # (Manual) Cancelled Metamyelocytes # (Man) Cancelled Myelocytes # (Manual) Cancelled Promyelocytes # (Man) Cancelled Blast Cells # (Man) Cancelled Plasma Cell # (Manual) Cancelled Other Cells # Cancelled Nucleated RBCs # (Man) Cancelled Hypersegmented Neuts Cancelled Hyposegmented Neuts Cancelled Hypogranular Neuts Cancelled Large Granular Lymphs Cancelled # Lrg Granular Lymphs Cancelled Hairy Cells Cancelled Smudge Cells Cancelled Toxic Granulation Cancelled Toxic Vacuolation Cancelled Dohle Bodies Cancelled Mireille Rods Cancelled Platelet Estimate Cancelled Hypogranular Platelets Cancelled Giant Platelets Cancelled Platelet Satelliting Cancelled RBC Morphology Cancelled Polychromasia Cancelled Hypochromasia Cancelled Poikilocytosis Cancelled Basophilic Stippling Cancelled Anisocytosis Cancelled Microcytosis Cancelled Macrocytosis Cancelled Spherocytes Cancelled Pappenheimer Bodies Cancelled Sickle Cells Cancelled Target Cells Cancelled Tear Drop Cells Cancelled Ovalocytes Cancelled Stomatocytes Cancelled [place] Bodies Cancelled Echinocytes Cancelled Acanthocytes (Spur) Cancelled Rouleaux Cancelled RBC Agglutinates Cancelled Schistocytes Cancelled Sezary Cell Cancelled PT Cancelled 11.3 INR Cancelled 1.0 APTT Cancelled 24 PTT Ratio Cancelled 0.9 Sodium 139 (136-145) mmol/L Potassium 4.1 (3.5-5.1) mmol/L Chloride 104 (98-107) mmol/L Carbon Dioxide 28 (21-32) mmol/L Anion Gap 7 (3-11) BUN 16 (6-23) mg/dl Creatinine 1.19 (0.6-1.4) mg/dl Est Cr Clr Drug Dosing 59.2 ml/min Est GFR ( Amer) 65.5 ml/min Est GFR (Non-Af Amer) 56.5 ml/min BUN/Creatinine Ratio 13.4 (10-20) Glucose 128 H (70-99(Fasting)) mg/dl Calcium 9.6 (8.6-10.3) mg/dl Magnesium 1.9 (1.7-2.4) mg/dl Total Bilirubin 0.6 (0.2-1.0) mg/dl AST 24 (13-39) U/L ALT 18 (7-52) U/L Alkaline Phosphatase 66 (34-104) U/L Troponin I High Sens 24.3 H (0-20) pg/ml B-Natriuretic Peptide 72 (0-100) pg/ml Total Protein 6.7 (6.0-8.3) gm/dl Albumin 4.0 (3.4-5.0) gm/dl Globulin 2.7 (2.5-4.0) gm/dl Albumin/Globulin Ratio 1.5 (0.9-2) TSH 3.009 (0.300-4.500) uIu/ml Urine Color Urine Appearance (Clear) Urine pH (4.5-7.5) Ur Specific [place] (1.000-1.030) Urine Protein (Negative) Urine Glucose (UA) (Negative) Urine Ketones (Negative) Urine Blood (Negative) Urine Nitrite (Negative) Urine Bilirubin (Negative) Urine Urobilinogen (Negative) Ur Leukocyte Esterase (Negative) Blood Parasites ID Cancelled 04/15/23 04/15/23 Range/Units 16:50 17:21 WBC RBC Hgb Hct MCV MCH MCHC RDW Std Deviation RDW Coeff of Frank Plt Count MPV Immature Gran % (Auto) Neut % (Auto) Lymph % (Auto) [place] % (Auto) Eos % (Auto) Baso % (Auto) Neut # (Auto) Lymph # (Auto) [place] # (Auto) Eos # (Auto) Baso # (Auto) Immature Gran # (Auto) Absolute Nucleated RBC Nucleated RBC % (auto) Neutrophils % (Manual) Band Neutrophils % Lymphocytes % (Manual) Prolymphocyte % Reactive Lymphs % (Man) Monocytes % (Manual) Eosinophils % (Manual) Basophils % (Manual) Metamyelocytes % (Man) Myelocytes % (Man) Promyelocytes % (Man) Blast Cells % (Manual) Plasma Cell % (Manual) Other Cells % Nucleated RBC % Neutrophils # (Manual) Band Neutrophils # Total Absolute Neuts Lymphocytes # (Manual) Prolymphocyte # Reactive Lymphs # Total Abs Lymphocytes Monocytes # (Manual) Eosinophils # (Manual) Basophils # (Manual) Metamyelocytes # (Man) Myelocytes # (Manual) Promyelocytes # (Man) Blast Cells # (Man) Plasma Cell # (Manual) Other Cells # Nucleated RBCs # (Man) Hypersegmented Neuts Hyposegmented Neuts Hypogranular Neuts Large Granular Lymphs # Lrg Granular Lymphs Hairy Cells Smudge Cells Toxic Granulation Toxic Vacuolation Dohle Bodies Mireille Rods Platelet Estimate Hypogranular Platelets Giant Platelets Platelet Satelliting RBC Morphology Polychromasia Hypochromasia Poikilocytosis Basophilic Stippling Anisocytosis Microcytosis Macrocytosis Spherocytes Pappenheimer Bodies Sickle Cells Target Cells Tear Drop Cells Ovalocytes Stomatocytes [place] Bodies Echinocytes Acanthocytes (Spur) Rouleaux RBC Agglutinates Schistocytes Sezary Cell PT INR APTT PTT Ratio Sodium (136-145) mmol/L Potassium (3.5-5.1) mmol/L Chloride (98-107) mmol/L Carbon Dioxide (21-32) mmol/L Anion Gap (3-11) BUN (6-23) mg/dl Creatinine (0.6-1.4) mg/dl Est Cr Clr Drug Dosing ml/min Est GFR ( Amer) ml/min Est GFR (Non-Af Amer) ml/min BUN/Creatinine Ratio (10-20) Glucose (70-99(Fasting)) mg/dl Calcium (8.6-10.3) mg/dl Magnesium (1.7-2.4) mg/dl Total Bilirubin (0.2-1.0) mg/dl AST (13-39) U/L ALT (7-52) U/L Alkaline Phosphatase (34-104) U/L Troponin I High Sens 31.7 H (0-20) pg/ml B-Natriuretic Peptide (0-100) pg/ml Total Protein (6.0-8.3) gm/dl Albumin (3.4-5.0) gm/dl Globulin (2.5-4.0) gm/dl Albumin/Globulin Ratio (0.9-2) TSH (0.300-4.500) uIu/ml Urine Color Yellow Urine Appearance Clear (Clear) Urine pH 5.5 (4.5-7.5) Ur Specific [place] 1.012 (1.000-1.030) Urine Protein Negative (Negative) Urine Glucose (UA) Negative (Negative) Urine Ketones Negative (Negative) Urine Blood Negative (Negative) Urine Nitrite Negative (Negative) Urine Bilirubin Negative (Negative) Urine Urobilinogen Negative (Negative) Ur Leukocyte Esterase Negative (Negative) Blood Parasites ID Administered Medications Aspirin (Aspirin 81 Mg Ectab) 81 mg PO DAILY FOR[facility]LY [facility], 1928–1983 Stop: 05/16/23 08:59 Last Admin: 04/16/23 09:22 Dose: 81 mg Documented By: SALVADOR Finasteride (Finasteride 5 Mg Tab) 5 mg PO QPM NIKOLAS Stop: 05/15/23 20:59 Last Admin: 04/15/23 21:14 Dose: 5 mg Documented By: CAMI Hydrochlorothiazide (Hydrochlorothiazide 25 Mg Tab) 25 mg PO DAILY [facility], 1928–1983 Stop: 05/16/23 08:59 Last Admin: 04/16/23 09:22 Dose: 25 mg Documented By: SALVADOR Heparin Sodium/Dextrose (Heparin Sodium/Dextrose) 25,000 units in 500 mls @ 0 mls/hr IV .Q0M NIKOLAS; Protocol Stop: 05/15/23 16:29 Last Titration: 04/16/23 08:51 Dose: 1,150 units/hr, 23 mls/hr Documented By: SALVADOR Co-signed By: SKB Titration: 04/16/23 07:50 Dose: 0 units/hr, 0 mls/hr Documented By: SALVADOR Co-signed By: AM Titration: 04/16/23 00:51 Dose: 1,400 units/hr, 28 mls/hr Documented By: MARIA FERNANDA Co-signed By: LCD Titration: 04/15/23 23:49 Dose: 0 units/hr, 0 mls/hr Documented By: MARIA FERNANDA Co-signed By: KMS Admin: 04/15/23 16:37 Dose: 1,600 units/hr, 32 mls/hr Documented By: SALVADOR Co-signed By: ROXY Lisinopril (Lisinopril 20 Mg Tab) 20 mg PO QAM [facility], [facility]1983 Stop: 05/16/23 08:59 Last Admin: 04/16/23 09:22 Dose: 20 mg Documented By: SALVADOR Simvastatin (Simvastatin 20 Mg Tab) 20 mg PO HS [facility], [facility]–1983 Stop: 05/15/23 20:59 Last Admin: 04/15/23 21:14 Dose: 20 mg Documented By: CAIM Terazosin HCl (Terazosin Hcl 5 Mg Cap) 10 mg PO HS [facility], [facility]–1983 Stop: 05/15/23 20:59 Last Admin: 04/15/23 21:14 Dose: 10 mg Documented By: CAMI Discontinued Medications Heparin Sodium/Dextrose (Heparin Iv Adult Wt-Based Standard *No* Initial Bolus Protocol) 1 each IV ONE ONE Stop: 04/15/23 16:46 Last Admin: 04/15/23 16:48 Dose: Not Given Documented By: SALVADOR Sodium Chloride (Nss) 500 mls @ 999 mls/hr IV .Q31M NIKOLAS Stop: 04/15/23 15:45 Last Infusion: 04/15/23 16:06 Dose: Infused Documented By: Admin: 04/15/23 15:35 Dose: 999 mls/hr Documented By: SALVADOR Potassium Chloride (Potassium Chloride Crtab 20 Meq Tabcr) 20 meq PO ONE ONE Stop: 04/16/23 08:38 Last Admin: 04/16/23 09:22 Dose: 20 meq Documented By: SALVADOR Imaging Data Radiologist's Impression: Head CT 04/15/23 15:11 CT OF THE HEAD WITHOUT CONTRAST CLINICAL HISTORY: syncope, found to have a fib, b/l UE shaking COMPARISON STUDY: No previous studies for comparison. CT DOSE: 625.8 mGy.cm TECHNIQUE: Helical axial images of the head were obtained without IV contrast. Automated exposure control was utilized for the study. A dose lowering technique was utilized adhering to the principles of ALARA. FINDINGS: No acute intracranial hemorrhage, midline shift or mass effect is present. There is mild atrophy. White matter hypodensity suggests small vessel disease. The ventricular system is unremarkable. The basal cisterns are patent. No extra-axial collections are present. There are no findings to suggest acute dural sinus thrombosis or acute territorial infarct. No significant calvarial abnormalities are present. Visualized portions of the sinuses and mastoid air cells are clear. IMPRESSION: 1. No acute intracranial findings. 2. No calvarial fracture. ACT 112: Negative or not required by law. Electronically signed by: Jourdan Christian M.D. 04/15/2023 3:38 PM Chest X-Ray 04/15/23 17:26 XR chest 1V portable CLINICAL HISTORY: new onset afib, syncope TECHNIQUE: Single frontal radiograph of the chest was obtained. Comparison: Comparison is made to chest radiograph to 418 FINDINGS: No lines and tubes are seen. Cardiomegaly is noted. The lungs are clear. No evidence of pleural effusion or pneumothorax. IMPRESSION: No acute chest disease. ACT 112: Negative or not required by law. Electronically signed by: Abdulaziz Sarkar M.D. 04/15/2023 6:48 PM Discharge Plan Visit Data Chief Complaint: Syncope Stated Complaint: SYNCOPE ED Provider: Orlando Miles Discharge Problem: New onset a-fib, Syncope and collapse Patient Disposition: Home - Self-Care Discharge Instructions Interventions: ED Discharge Assessment Last Done: 04/15/23 20:26
[2023-04-15] MEDS ORDERED: SODIUM CHLORIDE 0.9% 500 ML IV SCH (15:15)
--- NOTE | 2023-04-15 15:39 | CT Scan Report ---
CT OF THE HEAD WITHOUT CONTRAST CLINICAL HISTORY: syncope, found to have a fib, b/l UE shaking COMPARISON STUDY: No previous studies for comparison. CT DOSE: 625.8 mGy.cm TECHNIQUE: Helical axial images of the head were obtained without IV contrast. Automated exposure con trol was utilized for the study. A dose lowering technique was utilized adhering to the principles o f ALARA. FINDINGS: No acute intracranial hemorrhage, midline shift or mass effect is present. There is mild at rophy. White matter hypodensity suggests small vessel disease. The ventricular system is unremarkable . The basal cisterns are patent. No extra-axial collections are present. There are no findings to sug gest acute dural sinus thrombosis or acute territorial infarct. No significant calvarial abnormalitie s are present. Visualized portions of the sinuses and mastoid air cells are clear. IMPRESSION: 1. No acute intracranial findings. 2. No calvarial fracture. ACT 112: Negative or not required by law. Electronically signed by: Jourdan Christian M.D. 04/15/2023 3:38 PM
[2023-04-15 15:42] LABS: Bilirubin,Total 0.6 mg/dl (0.2-1.0); Calcium 9.6 mg/dl (8.6-10.3); Magnesium 1.9 mg/dl (1.7-2.4); Potassium 4.1 mmol/L (3.5-5.1)
[2023-04-15 15:48] LABS: Albumin Globulin Ratio 1.5 (0.9-2); BUN Creatinine Ratio 13.4 (10-20); Creatinine Clr Calc Pharmacy 59.2 ml/min; Est GFR (African American) 65.5 ml/min; Est GFR (Non-African American) 56.5 ml/min; Globulin 2.7 gm/dl (2.5-4.0); Total Protein 6.7 gm/dl (6.0-8.3)
[2023-04-15 16:03] LABS: Troponin I High Sensitivity 24.3 pg/ml (0-20)
[2023-04-15] MEDS ORDERED: Heparin IV Adult Wt-Based Standard w/ INITIAL Bolus Protocol IV STA (16:11)
[2023-04-15 16:13] LABS: Thyroid Stimulating Hormone 3.009 uIu/ml (0.300-4.500)
[2023-04-15 16:15] LABS: Basophils # (auto) 0.04 K/uL (0.00-0.20); Basophils % (auto) 0.6 %; Eosinophils # (auto) 0.02 K/uL (0.00-0.50); Eosinophils % (auto) 0.3 %; Hematocrit (blood only) 40.8 % (42.0-52.0); Immature Granulocytes # (auto) 0.02 K/uL (0.01-0.20); Immature Granulocytes % (auto) 0.3 %; Lymphocytes # (auto) 0.56 K/uL (1.20-3.40); Lymphocytes % (auto) 8.9 %; Mean Corpuscular Hemoglobin 31.3 pg (25.0-34.0); Mean Corpuscular Hgb Conc 31.9 g/dL (32.0-36.0); Mean Corpuscular Volume 98.3 fL (80.0-100.0); Mean Platelet Volume 10.6 fL (9.4-12.4); Monocytes # (auto) 0.45 K/uL (0.11-0.59); Monocytes % (auto) 7.1 %; Neutrophils # (auto) 5.21 K/uL (1.40-6.50); Neutrophils % (auto) 82.8 %; Platelet Count 131 K/uL (130-400); RDW Coefficient of Variation 12.9 % (11.5-14.5); RDW Standard Deviation 46.9 fL (36.4-46.3); Red Blood Count 4.15 M/uL (4.70-6.10)
[2023-04-15] MEDS ORDERED: HEPARIN SOD (PORCINE) 1000 UNIT/ML IV ONE ×2 (16:28)
[2023-04-15] MEDS ORDERED: Heparin IV Adult Wt-Based Standard w/ INITIAL Bolus Protocol IV SCH (16:30)
[2023-04-15] MEDS: HEPARIN SODIUM/DEXTROSE 25,000 UNITS/500 ML BAG IV SCH (16:37)
[2023-04-15] MEDS ORDERED: Heparin IV Adult Wt-Based Standard *NO* INITIAL Bolus Protocol IV ONE (16:45)
[2023-04-15 16:51] LABS: Partial Thromboplastin Ratio 0.9; Partial Thromboplastin Time 24 Seconds (21-31); Prothrombin Time 11.3 Seconds (9.0-12.0)
[2023-04-15 17:10] LABS: Appearance Urine Clear (Clear); Bilirubin Urine Negative (Negative); Blood Urine Negative (Negative); Color Urine Yellow; Glucose Urine UA Negative (Negative); Ketones Urine Negative (Negative); Leukocyte Esterase Urine Negative (Negative); Nitrite Urine Negative (Negative); Protein Urine Negative (Negative); Specific Gravity Urine 1.012 (1.000-1.030); Urobilinogen Urine Negative (Negative); pH Urine 5.5 (4.5-7.5)
--- NOTE | 2023-04-15 17:59 | History & Physical Report ---
Date of Service April 15, 2023 Assessment & Plan (1) Syncope and collapse: Plan: Recurrent, new onset afib. Echo ordered, cont telemetry, currently patient is rate controlled. Heparin drip started in the ER. TRend trop, however, doubt ACS given lack of CP and no acute ischemia on EKG. BSG is within normal range and he is not hypoxic, however, he is at risk for MELE and we discussed him getting an outpatient sleep study. BP also noted to be elevated despite antihypertensives. Less likely to be seizure with clinical description and without a history but will hold his bupropion and obtain EEG and neuro consult to be sure. Head CT is unremarkable and there are no gross focal neuro deficits on exam. TSH within normal limits and no evidence of infection. He did report recent URI a couple of weeks ago, but symptoms have resolved, not on OTC meds a nd appears unrelated to his even today. Will screen for diabetes with A1C and cont monitoring overnight, awaiting further study results. (2) New onset a-fib: Plan: As above, cont heparin, telemetry monitoring. Echo pending. Cardiology consulted. (3) CKD (chronic kidney disease), stage III: Plan: chronic, creat is stable at his baseline. Cont current therapy. (4) Dyslipidemia: Plan: chronic, stable. Cont home simvastatin. (5) Hypertension: Plan: chronic, stable with slight elevation. Cont HCTZ and lis per home regimen and outpatient sleep study recommended to rule out MELE. Weight loss recommended. (6) BPH (benign prostatic hyperplasia): Plan: chronic, stable LUTS symtpoms. Cont finasteride and terazosin per home regimen. (7) Morbid obesity: Plan: weight loss recommended. Heparin drip Full Code Dispo-to telemetry with home in next 1-2 days pending results of workup. I spent a total of75 minutes coordinating, documenting, and providing care for this patient excluding time spent in the performance of separately billed services Brenda Peña DO [facility] Hospitalist History of Present Illness Chief Complaint: syncope Primary Care Provider: Rad Melgar MD 82 yo M presents wtih syncope and witnessed shaking by his which appeared consistent with possible seizure like activity. He was found to be in new onset atrial fibrillation on workup today and was started on a heparin drip. Heart rate is in the 70s without AV zoraida blockers. Trop mildly elevated at 24 without reports of chest pain. No SOB. No PEREZ. No history of seizures, and is notably on buproprion which may lower the seizure threshold. reports just sat down to the table to eat, and patient had eaten part of the sandwich. He suddenly threw his head back, arms out and he was making a circular motion with his hands and making a noise while he was breathing, puffing his face out. He was not responsive to calling his name out initially. picked his head up off the table. He awoke but looked dazed and confused. He was able to speak to his without speech deficits and walk around eventually. From the patient's perspective, he reports a falling episode with dizziness and a feeling of queasiness prior to passing out today (not with other episodes). Other episodes include an episode when he was in bed reading, he passed out. Also, happened while he was on the floor fixing the refrigerator when he had a period of transient loss of consciousness without warning. He awoke and was clear. Most recently, he was driving home from [place] 2-3 weeks ago and had a spell as he was driving. He said "everything just gets black". states he looked he fell asleep from her perspective. This was while the car was in motion. He responded well to her voice. drove the rest of the way home and patient was fine after this but has quit driving. He reports shortness of breath ongoing for the past couple of years, worse in the last year. No chest pain, no headaches, no abd pain, no changes with bowel movement, chronic urinary issues with BPH without recent changes. No cough, pt reports a recent cold for 3-4 days recently with coughing, runny nose, phlegm on his chest (was taking mucinex OTC). Reports those symptoms were resolved one week ago. Functional status is poor, walks to the mail but mostly sedentary. FEels like the shortness of breath is limiting for him. Walking briskly can cause him shortness of breath. Denies chest pain with exertion. No PEREZ when awakens, but feels groggy until afternoon typically. Reports easily falling asleep when he sits down in his chair in the evening. Denies a known h/o MELE and denies having a sleep study in the past. Allergies Allergy/AdvReac Type Severity Reaction Status Date / Time Sulfa (Sulfonamide Allergy Unknown UNKNOWN Unverified 04/15/23 15:42 Antibiotics) Home Medications Medication Instructions Recorded Confirmed Type bupropion HCl 150 mg tablet,12 hr 300 mg PO QAM 04/15/23 04/15/23 History sustained-release finasteride 5 mg tablet 5 mg PO QPM 04/15/23 04/15/23 History hydrochlorothiazide 25 mg tablet 25 mg PO DAILY 04/15/23 04/15/23 History lisinopril 20 mg tablet 20 mg PO QAM 04/15/23 04/15/23 History simvastatin 20 mg tablet 20 mg PO HS 04/15/23 04/15/23 History terazosin 10 mg capsule 10 mg PO HS 04/15/23 04/15/23 History Past Med/Surg History Medical History (Updated 04/15/23 @ 19:23 by Brenda Peña DO) Morbid obesity Dyslipidemia CKD (chronic kidney disease), stage III BPH (benign prostatic hyperplasia) Hypertension Hypercholesterolemia Surgical History H/O ventral hernia repair H/O cataract removal with insertion of prosthetic lens Social History Smoking Status: Former smoker Second Hand Exposure: No; Do You Dip or Chew Tobacco: No; Tobacco Cessation Education Requested by Patient: No Hx Alcohol Use: No Hx Substance Use: No Preferred Language: Nigerian Communication Ability: Effective School Administrator Required: No Beliefs That Will Affect Care: None Current Living Situation: Spouse Other Information That Helps Us Care for You: No Feels Safe at Home: Yes Safety Concerns: Feels Safe At This Time Assistive Devices: None Physical Exam Physical Exam: CONSTITUTIONAL: obese, vitals as above, generally well-appearing EYES: pupils are round and equal and reactive, normal conjunctivae, no scleral icterus ENT: external ear and nose normal, MMM NECK: trachea midline, thick neck circumference RESPIRATORY: clear to auscultation bilaterally, no crackles, rales or wheezes, normal respiratory effort CARDIOVASCULAR: regular rate and rhythm, S1 and 2 heard without murmurs, gallops or rubs, no JVD, no peripheral edema CHEST: inspection of chest was normal GASTROINTESTINAL: soft, nontender, ND, no guarding MUSCULOSKELETAL: strength 5/5 throughout, head is normocephalic and atraumatic, SKIN: warm and dry NEUROLOGIC: CN 2-12 grossly intact, no sensory deficit, normal cognition, normal speech, no tremor PSYCHIATRIC: alert cooperative and oriented to person, place and time. Euthymic mood, makes good eye contact, language grossly intact, recent and remote memory grossly intact. Results & Data Results & Data Vital Signs (Past 12 Hours) Vital Signs Temp Pulse Resp BP Pulse Ox O2 Del Method 04/15/23 16:37 71 19 172/78 H 95 04/15/23 15:37 67 18 126/80 96 04/15/23 15:11 65 20 95 Room Air 04/15/23 14:31 36.4 C L 63 24 157/71 H 95 04/15/23 14:30 72 Laboratory Results Short CBC 04/15/23 04/15/23 Range/Units 14:34 15:52 WBC Cancelled 6.30 Hgb Cancelled 13.0 L Hct Cancelled 40.8 L Plt Count Cancelled 131 BMP 04/15/23 14:34 Sodium 139 Potassium 4.1 Chloride 104 Carbon Dioxide 28 BUN 16 Creatinine 1.19 Glucose 128 H Calcium 9.6 Liver Function 04/15/23 Range/Units 14:34 Total Bilirubin 0.6 (0.2-1.0) mg/dl AST 24 (13-39) U/L ALT 18 (7-52) U/L Alkaline Phosphatase 66 (34-104) U/L Albumin 4.0 (3.4-5.0) gm/dl Urine 04/15/23 Range/Units 16:50 Urine Color Yellow Urine Appearance Clear (Clear) Urine pH 5.5 (4.5-7.5) Ur Specific [place] 1.012 (1.000-1.030) Urine Protein Negative (Negative) Urine Glucose (UA) Negative (Negative) Diagnostic Findings Head CT 04/15/23 15:11 CT OF THE HEAD WITHOUT CONTRAST CLINICAL HISTORY: syncope, found to have a fib, b/l UE shaking COMPARISON STUDY: No previous studies for comparison. CT DOSE: 625.8 mGy.cm TECHNIQUE: Helical axial images of the head were obtained without IV contrast. Automated exposure control was utilized for the study. A dose lowering technique was utilized adhering to the principles of ALARA. FINDINGS: No acute intracranial hemorrhage, midline shift or mass effect is present. There is mild atrophy. White matter hypodensity suggests small vessel disease. The ventricular system is unremarkable. The basal cisterns are patent. No extra-axial collections are present. There are no findings to suggest acute dural sinus thrombosis or acute territorial infarct. No significant calvarial abnormalities are present. Visualized portions of the sinuses and mastoid air cells are clear. IMPRESSION: 1. No acute intracranial findings. 2. No calvarial fracture. ACT 112: Negative or not required by law. Electronically signed by: Jourdan Christian M.D. 04/15/2023 3:38 PM Medications Administered Current Inpatient Medications Heparin Sodium/Dextrose (Heparin Sodium/Dextrose) 25,000 units in 500 mls @ 32 mls/hr IV .[id number] [facility]; Protocol Stop: 05/15/23 16:29 Last Admin: 04/15/23 16:37 Dose: 1,600 units/hr, 32 mls/hr Code Status & VTE Plan VTE Prophylaxis Plan VTE Prophylaxis will be ordered: Yes
--- NOTE | 2023-04-15 18:51 | XRay Report ---
XR chest 1V portable CLINICAL HISTORY: new onset afib, syncope TECHNIQUE: Single frontal radiograph of the chest was obtained. Comparison: Comparison is made to chest radiograph to 418 FINDINGS: No lines and tubes are seen. Cardiomegaly is noted. The lungs are clear. No evidence of pleural effus ion or pneumothorax. IMPRESSION: No acute chest disease. ACT 112: Negative or not required by law. Electronically signed by: Abdulaziz Sarkar M.D. 04/15/2023 6:48 PM
[2023-04-15] MEDS ORDERED: ACETAMINOPHEN 325 MG TAB PO PRN (20:26)
[2023-04-15] MEDS ORDERED: POLYETHYLENE (MIRALAX) 17 GM PACK PO PRN (20:26)
[2023-04-15] MEDS: TERAZOSIN HCL 5 MG CAP PO SCH (21:14)
[2023-04-15] MEDS: SIMVASTATIN 20 MG TAB PO SCH (21:14)
[2023-04-15] MEDS: FINASTERIDE 5 MG TAB PO SCH (21:14)
--- OUTSIDE RECORDS SUMMARY | 2023-04-15 22:52 | External Medical Summary | Summary of Care ---
Author Name Unknown Organization [facility] Address [address] [place] [address] Phone [phone] Care Team Providers Care Production Illustrator Name Role Phone Rad Melgar MD Primary Care Provider [phone]- [phone] Encounter Details Date Type Department Care Team Description 12/08/2022 Orders Only Outcomes Research Department [address], [place] [id number] [facility] [employer] [facility] Other*[id number] Allergies Active Allergy Reactions Severity Noted Date Comments Sulfa Antibiotics Unknown 06/14/2003 documented as of this encounter (statuses as of 12/08/2022) Medications Medication Sig Dispensed Refills Start Date End Date Status Cholecalciferol 25 MCG (1000 UT) Oral Capsule Take 1 Capsule by mouth in the morning. 0 Active Finasteride 5 MG Oral Tablet (Proscar)Indications: BPH with obstruction/lower urinary tract symptoms TAKE 1 TABLET DAILY 90 Tablet 3 08/27/2022 Active buPROPion HCl ER (SR) 150 MG Oral Tablet Extended Release 12 Hour (Wellbutrin SR)Indications:Depres nick, unspecified depression type TAKE 1 TABLET TWICE A DAY 180 Tablet 3 11/19/2022 Active Lisinopril 20 MG Oral Tablet (Prinivil)Indications :HTN, goal below 140/90 TAKE 1 TABLET DAILY 90 Tablet 3 11/19/2022 Active Terazosin HCl 10 MG Oral CapsuleIndications:BP H with obstruction/lower urinary tract symptoms TAKE 1 CAPSULE AT BEDTIME 90 Capsule 3 11/19/2022 Active Simvastatin 20 MG Oral Tablet (Zocor)Indications:Dy slipidemia, goal LDL below 100 TAKE 1 TABLET EVERY NIGHT AT BEDTIME 90 Tablet 3 11/19/2022 Active hydroCHLOROthiazide 25 MG Oral Tablet (Hydrodiuril)Indicati ons:HTN, goal below 150/90 TAKE 1 TABLET DAILY 90 Tablet 3 11/19/2022 Active documented as of this encounter (statuses as of 12/08/2022) Active Problems Problem Noted Date Chronic kidney disease, stage 3a 021 Overview: Per CKD protocol Hypertensive kidney disease with stage 3 a chronic kidney disease 05/28/2020 Overview: Per CKD protocol BPH with obstruction/lower urinary tract symptoms 06/19/2011 HTN, goal below 150/90 12/22/1995 Dyslipidemia, goal LDL below 100 documented as of this encounter (statuses as of 12/08/2022) Resolved Problems Problem Noted Date Resolved Date Morbid obesity with body mass index of 40.0-44.9 in adult 09/02/2018 11/07/2021 Hypertensive kidney disease with chronic kidney disease stage III 03/01/2018 05/31/2020 Overview: Per CKD protocol Major depressive disorder, single episode, in fu ll remission 03/01/2018 05/14/2022 Prediabetes 05/05/2017 09/20/2017 Overview: Per Prediabetes protocol #1 Severe obesity with body mas s index (BMI) of 35.0 to 39.9 with serious comorbidity 02/20/2017 03/01/2018 Overview: bmi= 39.31 02/20/17 ICD-10 update of inactive diagnosis Adult BMI 40.0-44.9 kg/sq m 01/31/201607/21 Overview: bmi= 40.10 04/01/15 Depression 07/27/2015 03/01/2018 Essential hypertension with goal blood pressure less than 140/90 07/27/2015 01/31/2016 Screen for colon cancer 07/27/2015 01/31/20 16 Adult BMI 40.0-44.9 kg/sq m 01/24/201507/21 Overview: bmi= 40.10 01/24/15 Severe obesity with body mas s index (BMI) of 35.0 to 39.9 with serious comorbidity 01/18/2014 08/01/2016 Overview: bmi= 39.80 01/18/14 ICD-10 update of inactive diagnosis Routine medical exam 07/14/2013 08/01/2016 Left shoulder pain 01/11/2013 08/01/2016 Kidney disease, chronic, stage III (GFR 30-59 ml /min) 07/12/2012 04/09/2018 Severe obesity with body mas s index (BMI) of 35.0 to 39.9 with serious comorbidity 07/12/2012 08/01/2016 Overview: bmi= 38.61 07/12/12 ICD-10 update of inactive diagnosis Cataract 04/01/2012 08/01/2016 Overview: right worse than left Preop examination 04/01/2012 08/01/2016 Severe obesity with body mas s index (BMI) of 35.0 to 39.9 with serious comorbidity 01/02/2012 08/01/2016 Overview: bmi= 37.93 01/02/12 ICD-10 update of inactive diagnosis Obesity, morbid (more than 1 00 lbs over ideal weight or BMI > 40) 06/19/2011 08/01/2016 Overview: bmi= 40.06 06/19/11 Depression 06/19/2011 07/27/2015 Special screening for malignant neoplasm of pros mattson 06/19/2011 08/01/2016 Screening for colon cancer 06/19/201108/01 OBESITY, BMI= 38.69 06/04/10 06/04/201007/21 Special screening for malignant neoplasms, colon 06/04/2010 07/14/2014 OVERWEIGHT 12/05/2009 06/04/2010 Need for influenza vaccination 12/05/2009 0 08/01/2016 Obesity, Class II, BMI 35-39.9, isolated (see ac tual BMI) 06/18/2009 12/05/2009 Overview: Per Obesity Taxonomy Obesity, Class II, BMI 35-39.9, isolated (see ac tual BMI) 06/18/2009 12/05/2009 Overview: Per Obesity Taxonomy OBESITY, BMI= 39.16 06/01/09 06/01/200907/21 Screening for prostate cancer 06/01/2009 Overweight (BMI 25.0-29.9) 06/19/200806/18 Overview: Per Obesity Taxonomy Pain in joint involving lower leg 06/19/2008 12/05/2009 OBESITY, BMI= 37.00 12/17/07 12/17/200707/21 History of tobacco use 12/17/2007 5 Pain in limb 12/17/2007 07/14/2014 ADVANCE DIRECTIVE INFORMATION 12/24/2004 Overview: brochure given to pt. BPH with obstruction/lower urinary tract symptom s 06/10/2004 06/19/2011 Elevated prostate specific antigen (PSA) 004 12/17/2007 Special screening for malignant neoplasms, colon 12/06/2003 05/31/2008 Overview: Resolved per Screening Diagnosis Protocol #6 Ventral hernia, unspecified, without mention of obstruction or gangrene 06/14/2003 07/14/2014 OBESITY, UNSPECIFIED 06/14/2003 04/27/2008 Overview: Resolved per Duplicate Protocol #2. 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 015 Dyslipidemia, goal to be determined 06/09/2001 12/05/2009 Benign prostatic hyperplasia 06/09/2001 Overview: ICD-10 update of inactive term ICD-10 update of inactive term Chronic rhinitis 06/09/2001 07/14/2014 OBESITY, UNSPECIFIED 06/09/2001 06/18/2009 Overview: Per Obesity Taxonomy HTN, goal below 140/90 02/23/2001 0 Head injury 01/07/2001 09/20/2017 Overview: ICD-10 update of inactive term Dermatophytosis of foot 03/24/2000 07/15/19 15 HTN, goal below 130/80 12/22/1995 1 HTN, goal below 140/90 12/22/1995 2 HTN, goal below 130/80 12/22/1995 2 HTN, goal below 140/90 12/22/1995 5 Intracranial injury of other and unspecified nature, without mention of open intracranial wound, unspecified state of consciousness 08/01/2016 HTN, goal below 140/90 1 Kidney disease, chronic, sta ge III (moderate, EGFR 30-59 ml/min) 01/18/2014 Polyp, colonic 02/20/2017 documented as of this encounter (statuses as of 12/08/2022) Immunizations Name Administration Dates Next Due COVID-19 mRNA, LNP-s, No Pre serve, 2-Dose Series ([employer]) 12/09/2021,12/23/2020,06/21/2020,08/2020 Covid-19, Mrna, Lnp-s, Pf, B ivalent, 30 Mcg, IM, 12 yrs and above ([employer]) 03/11/2022 Diptheria/Tetanus (Adult) 02/15/2019 Pneumococcal Conjugate Vacc, 13 Valent (Prevnar) 01/24/2015 Pneumococcal Polysaccharide PPV23 (Pneumovax) 01/22/2006 Seasonal Influenza, PF, 6 mo ns & Above, IM , (Flulaval) 12/08/2019,01/13/2019,12/24/2017,12/2301/19/2018 Seasonal Influenza, Quadriva lent Hd (Fluzone Hd) 12/05/2022,12/20/2021,12/06/2020 Seasonal Influenza, Quadriva lent, No Preserve, IM 01/31/2016,01/24/2015 Seasonal Influenza, Split, I IV3, With Preserve, Inj 01/18/2014,01/11/2013,01/02/2012,11/22,12/05/2009,01/22/2007,01/23/20 06 01/18/2015 TD, Preservative Free 12/17/2007 TDAP (age 10 and older)(Boost[employer]) 02/15/2019 documented as of this encounter Social History Tobacco Use Types Packs/Day Years Used Date Smoking Tobacco: Former Cigarettes 1 43 Q uit: 10/08/2001 Passive Smoke Exposure: Past Smokeless Tobacco: Never Comments:began at age 18 Alcohol Use Standard Drinks/Week Comments No 0 (1 standard drink = 0.6 oz pur e alcohol) None Food Insecurity Answer Date Recorded Within the past 12 months, y ou worried that your food would run out before you got money to buy more. Never true 05/12/2022 Within the past 12 months, t he food you bought just didn't last and you didn't have money to get more. Never true 05/12/2022 Sex Assigned at Date Recorded Male 07/05/2021 11:46 AM EDT Job Start Date Occupation Industry Not on file Not on file Not on file documented as of this encounter Plan of Treatment Upcoming Encounters Date Type Specialty Care Team Description 05/15/2023 Office Visit Family Medicine Rad Melgar MD [address] [place] [facility] [place] [address] Scheduled Orders Name Type Priority Associated Diagnoses Orde r Schedule MYCODE SUBSEQUENT ADULT Lab Routine [employer] [facility] Other*[id number] Every 6 Months for 2 Occurrences starting 12/08/2022 until 12/28/2023 Health Maintenance Due Date Last Done Comments Zoster Vaccines (1 of 2) 1990 GFR 06/02/2022 12/03/2021, 10/21, 05/07/2020, Additional history exists Depression Screening 11/07/2022 11/07/2021, 07/24/2015, 07/14/2014 Albumin/Creatinine Ratio 12/03/2022 022, 08/01/2016, 07/27/2015, Additional history exists CKD HGB USE SMARTSET 36747 12/03/202212/03, 11/05/2020, 09/21/2019, Additional history exists CKD PHOS USE SMARTSET 39591 12/03/202211/21, 05/07/2020, 03/01/2018, Additional history exists DTaP,Tdap,and Td Vaccines (2 - Td or Tdap) 02/15/2029 02/15/2019, 02/15/2019, 12/17/2007, Additional history exists Pneumococcal Vaccine: 65+ Years Completed 01/24/2015, 01/22/2006, 12/22/1995 COVID-19 Vaccine Completed 03/11/2022, , 12/23/2020, Additional history exists Influenza Vaccine (FLU shot) Completed , 12/20/2021, 12/06/2020, Additional history exists GARDASIL-HPV IMMUNIZATION SERIES Aged Out No longer eligible based on patient's age to complete this topic Hepatitis B Aged Out No longer eligi ble based on patient's age to complete this topic MENINGOCOCCAL (MENACTRA/MENVEO) Aged Out No longer eligible based on patient's age to complete this topic documented as of this encounter Medical Devices Not on filedocumented as of this encounter Visit Diagnoses Diagnosis [employer] Other*[id number] documented in this encounter Care Teams Production Illustrator Relationship Specialty Start Date End Date Rad Melgar MD [address] [place] [address] PCP - General Family Medicine 08/28/17 documented as of this encounter
--- OUTSIDE RECORDS SUMMARY | 2023-04-15 22:53 | External Medical Summary | Summary of Care ---
Author Name Unknown Organization [facility] Address [address] [place] [address] Phone [phone] Care Team Providers Care Codifier Name Role Phone Rad Melgar MD Primary Care Provider [phone]- [phone] Reason for Visit * Reason Comments Medication Administration Flu shot Encounter Details Date Type Department Care Team Description 12/05/2022 Immunization Ancillary Department, [place] [address] [place] [address] [place] [address] [place] [address] Arrived Allergies Active Allergy Reactions Severity Noted Date Comments Sulfa Antibiotics Unknown 06/14/2003 documented as of this encounter (statuses as of 12/05/2022) Medications Medication Sig Dispensed Refills Start Date [...] as of this encounter (statuses as of 12/05/2022) Active Problems Problem Noted Date Chronic kidney disease, stage 3a 021 Overview: Per CKD protocol Hypertensive kidney disease with stage 3 a chronic kidney disease 05/28/2020 Overview: Per CKD protocol BPH with obstruction/lower urinary tract symptoms 06/19/2011 HTN, goal below 150/90 12/22/1995 Dyslipidemia, goal LDL below 100 documented as of this encounter (statuses as of 12/05/2022) Resolved Problems Problem Noted Date Resolved Date [...] as of this encounter (statuses as of 12/05/2022) Immunizations Name Administration Dates Next Due COVID-19 mRNA, LNP-s, No Pre serve, 2-Dose Series ([employer]) 12/09/2021,12/23/2020,06/21/2020,0308/2020 Covid-19, Mrna, Lnp-s, Pf, B ivalent, 30 Mcg, IM, 12 yrs and above ([employer]) 03/11/2022 Diptheria/Tetanus (Adult) 02/15/2019 Pneumococcal Conjugate Vacc, [...] Family Medicine Rad Melgar MD [address] [place] [address] Health Maintenance Due Date Last Done Comments Zoster Vaccines (1 of 2) 1990 GFR 06/02/2022 12/03/2021, 10/21, 05/07/2020, Additional history exists Depression Screening 11/07/2022 11/07/2021, 07/24/2015, 07/14/2014 Albumin/Creatinine Ratio 12/03/2022 022, 08/01/2016, 07/27/2015, Additional history exists CKD HGB USE SMARTSET 65226 12/03/202212/03, 11/05/2020, 09/21/2019, Additional history exists CKD PHOS USE SMARTSET 54220 12/03/202211/21, 05/07/2020, 03/01/2018, Additional history exists DTaP,Tdap,and [...] Not on filedocumented as of this encounter Care Teams Codifier Relationship Specialty Start Date End Date Rad Melgar MD [address] [place] [address] PCP - General Family Medicine 08/28/17 documented as of this encounter
--- OUTSIDE RECORDS SUMMARY | 2023-04-15 22:53 | External Medical Summary | Summary of Care ---
Author Name Unknown Organization [facility] Address [address] [facility] [place] [address] Phone [phone] Care Team Providers Care State Federal Relations Deputy Director Name Role Phone Deedee Arredondo MD Primary Care Provider [phone]- [phone] Reason for Visit * Reason Comments eRx-Medication Refill Encounter Details Date Type Department Care Team Description 11/18/2022 Refill Located Within [facility] [address] [place] [address] Deedee Arredondo MD [address] [place] [address] Depression, unspecified depression type; HTN, goal below 140/90; BPH with obstruction/lower urinary tract symptoms; Dyslipidemia, goal LDL below 100; HTN, goal below 150/90 Allergies Active Allergy Reactions Severity Noted Date Comments Sulfa Antibiotics Unknown 06/14/2003 documented as of this encounter (statuses as of 11/19/2022) Medications Medication Sig Dispensed Refills Start Date End Date Status Cholecalciferol 25 MCG (1000 UT) Oral Capsule Take 1 Capsule by mouth in the morning. 0 Active Finasteride 5 MG Oral Tablet (Proscar)Indicati ons:BPH with obstruction/lower urinary tract symptoms TAKE 1 TABLET DAILY 90 Tablet 3 08/27/2022 Active buPROPion HCl ER (SR) 150 MG Oral Tablet Extended Release 12 Hour (Wellbutrin SR)Indications:De pression, unspecified depression type TAKE 1 TABLET TWICE A DAY 180 Tablet 3 11/19/2022 Active Lisinopril 20 MG Oral Tablet (Prinivil)Indicat ions:HTN, goal below 140/90 TAKE 1 TABLET DAILY 90 Tablet 3 11/19/2022 Active Terazosin HCl 10 MG Oral CapsuleIndication s:BPH with obstruction/lower urinary tract symptoms TAKE 1 CAPSULE AT BEDTIME 90 Capsule 3 11/19/2022 Active Simvastatin 20 MG Oral Tablet (Zocor)Indication s:Dyslipidemia, goal LDL below 100 TAKE 1 TABLET EVERY NIGHT AT BEDTIME 90 Tablet 3 11/19/2022 Active hydroCHLOROthiazi de 25 MG Oral Tablet (Hydrodiuril)Olimpia cations:HTN, goal below 150/90 TAKE 1 TABLET DAILY 90 Tablet 3 11/19/2022 Active Lisinopril 20 MG Oral Tablet (Prinivil)Indicat ions:HTN, goal below 140/90 TAKE 1 TABLET DAILY 90 Tablet 2 02/21/2022 11/19/2022 Discontinued hydroCHLOROthiazi de 25 MG Oral Tablet (Hydrodiuril)Olimpia cations:HTN, goal below 150/90 TAKE 1 TABLET DAILY 90 Tablet 2 02/21/2022 11/19/2022 Discontinued Terazosin HCl 10 MG Oral CapsuleIndication s:BPH with obstruction/lower urinary tract symptoms TAKE 1 CAPSULE AT BEDTIME 90 Capsule 1 05/22/2022 11/19/2022 Discontinued Simvastatin 20 MG Oral Tablet (Zocor)Indication s:Dyslipidemia, goal LDL below 100 TAKE 1 TABLET EVERY NIGHT AT BEDTIME 90 Tablet 1 05/22/2022 11/19/2022 Discontinued buPROPion HCl ER (SR) 150 MG Oral Tablet Extended Release 12 Hour (Wellbutrin SR)Indications:De pression, unspecified depression type TAKE 1 TABLET TWICE A DAY 180 Tablet 1 05/22/2022 11/19/2022 Discontinued documented as of this encounter (statuses as of 11/19/2022) Active Problems Problem Noted Date Chronic kidney disease, stage 3a 021 Overview: Per CKD protocol Hypertensive kidney disease with stage 3 a chronic kidney disease 05/28/2020 Overview: Per CKD protocol BPH with obstruction/lower urinary tract symptoms 06/19/2011 HTN, goal below 150/90 12/22/1995 Dyslipidemia, goal LDL below 100 documented as of this encounter (statuses as of 11/19/2022) Resolved Problems Problem Noted Date Resolved Date [...] as of this encounter (statuses as of 11/19/2022) Immunizations Name Administration Dates Next Due COVID-19 mRNA, LNP-s, No Pre serve, 2-Dose Series ([employer]!) 12/09/2021,12/23/2020,06/21/2020,0308/2020 Covid-19, Mrna, Lnp-s, Pf, B ivalent, 30 Mcg, IM, 12 yrs and above ([employer]!) 03/11/2022 Diptheria/Tetanus (Adult) 02/15/2019 Pneumococcal Conjugate Vacc, 13 Valent (Prevnar) 01/24/2015 Pneumococcal Polysaccharide PPV23 (Pneumovax) 01/22/2006 Seasonal Influenza, PF, 6 mo ns & Above, IM , (Flulaval) 12/08/2019,01/13/2019,12/24/2017,12/2301/19/2018 Seasonal Influenza, Quadriva lent Hd (Fluzone Hd) 12/20/2021,12/06/2020 Seasonal Influenza, Quadriva lent, No Preserve, IM [...] on file documented as of this encounter Miscellaneous Notes * Telephone Encounter - Deedee Arredondo MD - 11/19/2022 3:25 PM EDTSigned Prescriptions: Disp Refills buPROPion HCl ER (SR) 150 MG Oral Tablet E*180 Ta*3 Sig: TAKE 1 TABLET TWICE A DAYAuthorizing Provider: DEEDEE ARREDONDO Lisinopril 20 MG Oral Tablet (Prinivil) 90 Tab*3 Sig: TAKE 1 TABLET DAILYAuthorizing Provider: DEEDEE ARREDONDO Terazosin HCl 10 MG Oral C apsule 90 Cap*3 Sig: TAKE 1 CAPSULE AT BEDTIMEAuthorizing Provider: DEEDEE ARREDONDO Simvastatin 20 MG Oral Tablet (Zocor) 90 Tab*3 Sig: TAKE 1 TABLET EVERY NIGHT AT BEDTIMEAuthorizing Provider: DEEDEE ARREDONDO hydroCHLOROthiazide 25 MG Oral Tablet (Hyd*90 Tab*3 Sig: TAKE 1 TABLET DAILYAuthorizing Provider: DEEDEE ARREDONDO * Telephone Encounter - Damir Nicholson [facility] - 11/18/2022 8:20 PM EDT Pending Prescriptions: Disp Refills buPROPion HCl ER (SR) 150 MG Oral Tablet E*180 Ta*3 Sig: TAKE 1TABLET TWICE A DAY Lisinopril 20 MG Oral Tablet [Pharmacy Med*90 Tab*3 Sig: TAKE 1 TABLET DAILY Terazosin HCl 10 MG Oral Capsule [Pharmacy*90 Cap*3 Sig: TAKE 1 CAPSULE AT BEDTIME Simvastatin 20 MG Oral Tablet [Pharmacy Me*90 Tab*3 Sig: TAKE 1 TABLET EVERY NIGHT AT BEDTIME hydroCHLOROthiazide 25 MG Oral Tablet [Pha*90 Tab*3 Sig: TAKE 1 TABLET DAILY documented in this encounter Plan of Treatment Upcoming Encounters Date Type Specialty Care Team Description 05/15/2023 Office Visit Family Medicine Deedee Arredondo MD [address] [place] [address] Health Maintenance Due Date Last Done Comments Zoster Vaccines (1 of 2) 1990 GFR 06/02/2022 12/03/2021, 10/21, 05/07/2020, Additional history exists Depression Screening, Annual for Pts 12 and Over 11/07/2022 11/07/2021, 07/24/2015, 07/14/2014 Influenza Vaccine (FLU shot) (#1) 2022 12/20/2021, 12/06/2020, 12/08/2019, Additional history exists Albumin/Creatinine Ratio 12/03/2022 022, 08/01/2016, 07/27/2015, Additional history exists CKD HGB USE SMARTSET 81168 12/03/202212/03, 11/05/2020, 09/21/2019, Additional history exists CKD PHOS USE SMARTSET 93194 12/03/202211/21, 05/07/2020, 03/01/2018, Additional history exists DTaP,Tdap,and Td Vaccines (2 - Td or Tdap) 02/15/2029 02/15/2019, 02/15/2019, 12/17/2007, Additional history exists Pneumococcal Vaccine: 65+ Years Completed 01/24/2015, 01/22/2006, 12/22/1995 COVID-19 Vaccine Completed 03/11/2022, , 12/23/2020, Additional history exists GARDASIL-HPV IMMUNIZATION SERIES Aged [...] as of this encounter Visit Diagnoses Diagnosis Depression, unspecified depression type HTN, goal below 140/90 Unspecified essential hypertension BPH with obstruction/lower urinary tract symptoms Hypertrophy of prostate with urinary obstruction and other lower urinary tract symptoms (LUTS) Dyslipidemia, goal LDL below 100 Other and unspecified hyperlipidemia HTN, goal below 150/90 documented in this encounter Care Teams State Federal Relations Deputy Director Relationship Specialty Start Date End Date Deedee Arredondo MD [address], [place] [id number] PCP - General Family Medicine 08/28/17 documented as of this encounter
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
--- OUTSIDE RECORDS SUMMARY | 2023-04-15 22:53 | External Medical Summary | Summary of Care ---
Author Name Unknown Organization [facility] Address [address] [place] [address] Phone [phone] Care Team Providers Care Sustainability Consultant Name Role Phone Rad Melgar MD Primary Care Provider +1- [phone] Reason for Visit * Reason Comments Medication Administration Flu shot Encounter Details Date Type Department Care Team Description 12/05/2022 Immunization Ancillary Department, [facility] [address] [place] [address] [facility] [address] [place] [address] Arrived Allergies Active Allergy Reactions Severity Noted [...] mRNA, LNP-s, No Pre serve, 2-Dose Series ([employer]) 12/09/2021,12/23/2020,06/21/2020,0308/2020 Covid-19, Mrna, Lnp-s, Pf, B ivalent, 30 Mcg, IM, 12 yrs and above ([employer]) 03/11/2022 Diptheria/Tetanus (Adult) 02/15/2019 Pneumococcal Conjugate Vacc, [...] Family Medicine Rad Melgar MD [address] [place] [address] Health Maintenance Due Date Last Done Comments Zoster Vaccines (1 of 2) 1990 GFR 06/02/2022 12/03/2021, 10/21, 05/07/2020, Additional history exists Depression Screening 11/07/2022 11/07/2021, 07/24/2015, 07/14/2014 Albumin/Creatinine Ratio 12/03/2022 022, 08/01/2016, 07/27/2015, Additional history exists CKD HGB USE SMARTSET 42903 12/03/202212/03, 11/05/2020, 09/21/2019, Additional history exists CKD PHOS USE SMARTSET 23662 12/03/202211/21, 05/07/2020, 03/01/2018, Additional history exists DTaP,Tdap,and [...] filedocumented as of this encounter Care Teams Sustainability Consultant Relationship Specialty Start Date End Date Rad Melgar MD [address] [place] [address] PCP - General Family Medicine 08/28/17 documented as of this encounter
[2023-04-15 23:44] LABS: ANTI-Xa, UFH(UnfractionatedHep 0.85 IU/ml (0.3-0.7)
[2023-04-16 06:48] LABS: Hematocrit (blood only) 41.3 % (42.0-52.0); Hemoglobin 13.2 g/dl (14.0-18.0); Mean Corpuscular Hemoglobin 31.6 pg (25.0-34.0); Mean Corpuscular Volume 98.8 fL (80.0-100.0); Mean Platelet Volume 10.5 fL (9.4-12.4); Platelet Count 124 K/uL (130-400); RDW Coefficient of Variation 13.1 % (11.5-14.5); Red Blood Count 4.18 M/uL (4.70-6.10); White Blood Count 6.76 K/ul (4.8-10.8)
[2023-04-16 07:07] LABS: BUN Creatinine Ratio 12.4 (10-20); Calcium 9.6 mg/dl (8.6-10.3); Creatinine Clr Calc Pharmacy 58.3 ml/min; Est GFR (African American) 64.2 ml/min; Est GFR (Non-African American) 55.4 ml/min; Magnesium 1.9 mg/dl (1.7-2.4); Potassium 3.6 mmol/L (3.5-5.1)
[2023-04-16 07:20] LABS: ANTI-Xa, UFH(UnfractionatedHep 0.98 IU/ml (0.3-0.7)
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
[2023-04-16 08:18] LABS: Estimated Average Glucose 131 mg/dl; Hemoglobin A1C 6.2 % (4.5-5.6)
[2023-04-16] MEDS ORDERED: POTASSIUM CHLORIDE CRTAB 20 MEQ TABCR PO ONE (08:37)
[2023-04-16] MEDS: ASPIRIN 81 MG ECTAB PO SCH (09:22)
[2023-04-16] MEDS: hydroCHLOROthiazide 25 MG TAB PO SCH (09:22)
[2023-04-16] MEDS: lisinopril 20 MG TAB PO SCH (09:22)
[2023-04-16] MEDS: HEPARIN SODIUM/DEXTROSE 25,000 UNITS/500 ML BAG IV SCH (14:11)
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
[2023-04-16 15:50] LABS: ANTI-Xa, UFH(UnfractionatedHep < 0.10 IU/ml (0.3-0.7)
--- NOTE | 2023-04-16 17:50 | Hospitalist Progress Note ---
Date of Service April 16, 2023 Assessment & Plan (1) Syncope and collapse: Plan: Recurrent syncope Suspect secondary to conduction system disease First-degree AV block, right bundle branch block, left anterior fascicular block on EKG Bradycardia secondary to above --CT Head: No acute intracranial findings. No calvarial fracture. --ECHO: Sinus bradycardia. Left ventricle is normal in size. Mild concentric LVH. Septal motion is consistent with conduction abnormality. No regional wall motion abnormality. EF 60 to 65%. Grade 1 diastolic dysfunction. Aortic valve sclerosis mild, without significant aortic valvular stenosis. --TSH: Normal --EEG pending --Appreciate cardiology input Will likely need dual-chamber pacemaker insertion N.p.o. 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 Cont current therapy. (4) Dyslipidemia: Plan: chronic, stable. Cont home simvastatin. (5) Hypertension: Plan: chronic Continue home medications Monitor Morbid obesity BMI 41 Needs sleep study as outpatient (6) BPH (benign prostatic hyperplasia): Plan: Chronic, stable LUTS symptoms Continue finasteride and terazosin (7) Morbid obesity: Plan: BMI 41 DVT Px: SCDs for now Code Status Full Code Admission and Anticipated Discharge Date Admission Date: April 15, 2023 Subjective Patient is seen and examined at bedside Currently offers no complaints this morning Denies any chest pain, dyspnea, dizziness, nausea, vomiting, abdominal pain Discussed with cardiology today Had EEG earlier today Discussed with patient's family at bedside Review of Systems Review of Systems: All systems reviewed & are unremarkable except as noted in Subjective Physical Exam Physical Exam: Physical Exam: Vitals signs as noted above General Appearance:Obese, no apparent distress Head: normocephalic, Atraumatic Eyes: normal inspection, EOMI Neck: supple, Trachea midline Respiratory/Chest: Normal breath sounds, CTA, No accessory muscle use Cardiovascular: S1, S2, No murmur Abdomen/GI:Soft, Non tender, Bowel sounds present Extremities/Musculoskeletal:normal inspection, no edema Neurologic/Psych:AAOX3, grossly no focal neurological deficits Skin: normal color, warm Results & Data Results & Data Vital Signs (Past 12 Hours) Vital Signs Temp Pulse Pulse Resp BP BP Pulse Ox 04/16/23 15:40 71 04/16/23 15:19 37.2 C 67 16 111/60 94 04/16/23 12:30 64 20 94 04/16/23 12:00 146/72 H 04/16/23 12:00 74 22 94 04/16/23 11:08 76 04/16/23 11:08 138/75 04/16/23 11:05 129/74 04/16/23 11:05 71 21 04/16/23 11:03 79 19 92 04/16/23 11:03 142/60 H 04/16/23 08:00 63 23 120/65 93 04/16/23 07:12 67 O2 Del Method 04/16/23 15:40 04/16/23 15:19 Room Air 04/16/23 12:30 04/16/23 12:00 04/16/23 12:00 04/16/23 11:08 04/16/23 11:08 04/16/23 11:05 04/16/23 11:05 04/16/23 11:03 04/16/23 11:03 04/16/23 08:00 04/16/23 07:12 Laboratory Results Short CBC 04/16/23 Range/Units 06:22 WBC 6.76 (4.8-10.8) K/ul Hgb 13.2 L (14.0-18.0) g/dl Hct 41.3 L (42.0-52.0) % Plt Count 124 L (130-400) K/uL BMP 04/16/23 06:22 Sodium 140 Potassium 3.6 Chloride 103 Carbon Dioxide 30 BUN 15 Creatinine 1.21 Glucose 108 H Calcium 9.6
--- NOTE | 2023-04-16 19:42 | Electrocardiogram Report ---
Test Reason : Blood Pressure : / mmHG Vent. Rate : 062 BPM Atrial Rate : 000 BPM P-R Int : 000 ms QRS Dur : 132 ms QT Int : 416 ms P-R-T Axes : 000 -73 065 degrees QTc Int : 422 ms Atrial fibrillation Right bundle branch block Left anterior fascicular block Bifascicular block Abnormal ECG When compared with ECG of 24-APR-2017 18:43, Atrial fibrillation has replaced Sinus rhythm Confirmed by Damir Dias ([id number]) on 04/16/2023 7:41:48 PM Referred By: REFERRED SELF Confirmed By:Dakota Dias
--- NOTE | 2023-04-16 20:01 | Electrocardiogram Report ---
Test Reason : Blood Pressure : / mmHG Vent. Rate : 063 BPM Atrial Rate : 063 BPM P-R Int : 162 ms QRS Dur : 132 ms QT Int : 420 ms P-R-T Axes : 000 -77 068 degrees QTc Int : 429 ms Sinus rhythm with Premature atrial complexes Right bundle branch block Left anterior fascicular block Bifascicular block Abnormal ECG When compared with ECG of 15-APR-2023 14:28, (unconfirmed) Sinus rhythm has replaced Atrial fibrillation Confirmed by Damir Dias ([id number]) on 04/16/2023 8:01:26 PM Referred By: REFERRED SELF Confirmed By:Dakota Dias
[2023-04-16] MEDS: TERAZOSIN HCL 5 MG CAP PO SCH (20:19)
[2023-04-16] MEDS: FINASTERIDE 5 MG TAB PO SCH (20:19)
[2023-04-16] MEDS: SIMVASTATIN 20 MG TAB PO SCH (20:19)
--- NOTE | 2023-04-17 06:36 | Electroencephalogram ---
EEG Procedure Note Date of Service April 16, 2023 Start / End Times Start Time: 12:07 End Time: 12:27 Referring Physician Brenda Peña, DO History An 82 year old male with loss of concioussness. EEG performed for evaluation of epileptiform acitvity. Home Medication List Medication Instructions Recorded Confirmed Type bupropion HCl 150 mg tablet,12 hr 300 mg PO QAM 04/15/23 04/15/23 History sustained-release finasteride 5 mg tablet 5 mg PO QPM 04/15/23 04/15/23 History hydrochlorothiazide 25 mg tablet 25 mg PO DAILY 04/15/23 04/15/23 History lisinopril 20 mg tablet 20 mg PO QAM 04/15/23 04/15/23 History simvastatin 20 mg tablet 20 mg PO HS 04/15/23 04/15/23 History terazosin 10 mg capsule 10 mg PO HS 04/15/23 04/15/23 History Inpatient Medication List Aspirin (Aspirin 81 Mg Ectab) 81 mg PO DAILY [facility] Stop: 05/16/23 08:59 Last Admin: 04/16/23 09:22 Dose: 81 mg Documented By: SALVADOR Finasteride (Finasteride 5 Mg Tab) 5 mg PO QPM [facility] Stop: 05/15/23 20:59 Last Admin: 04/16/23 20:19 Dose: 5 mg Documented By: Admin: 04/15/23 21:14 Dose: 5 mg Documented By: CAMI Hydrochlorothiazide (Hydrochlorothiazide 25 Mg Tab) 25 mg PO DAILY [facility] Stop: 05/16/23 08:59 Last Admin: 04/16/23 09:22 Dose: 25 mg Documented By: SALVADOR [facility]inop[facility] ([facility] 20 Mg Tab) [facility] Stop: 05/16/23 08:59 Last Admin: 04/16/23 09:22 Dose: 20 mg Documented By: SALVADOR Simvastatin (Simvastatin 20 Mg Tab) 20 mg PO [facility] Stop: 05/15/23 20:59 Last Admin: 04/16/23 20:19 Dose: 20 mg Documented By: Admin: 04/15/23 21:14 Dose: 20 mg Documented By: CAMI Terazosin HCl (Terazosin Hcl 5 Mg Cap) 10 mg PO [facility] Stop: 05/15/23 20:59 Last Admin: 04/16/23 20:19 Dose: 10 mg Documented By: Admin: 04/15/23 21:14 Dose: 10 mg Documented By: CAMI Discontinued Medications Heparin Sodium/Dextrose (Heparin Iv Adult Wt-Based Standard *No* Initial Bolus Protocol) 1 each IV ONE ONE Stop: 04/15/23 16:46 Last Admin: 04/15/23 16:48 Dose: Not Given Documented By: SALVADOR Sodium Chloride (Nss) 500 mls @ 999 mls/hr IV .Q31M [facility] Stop: 04/15/23 15:45 Last Infusion: 04/15/23 16:06 Dose: Infused Documented By: Admin: 04/15/23 15:35 Dose: 999 mls/hr Documented By: SALVADOR Heparin Sodium/Dextrose (Heparin Sodium/Dextrose) 25,000 units in 500 mls @ 0 mls/hr IV .Q0M [facility]; Protocol Stop: 05/15/23 16:29 Last Admin: 04/16/23 14:11 Dose: Not Given Documented By: Titration: 04/16/23 11:44 Dose: Infused Documented By: SALVADOR Co-signed By: ROXY Titration: 04/16/23 08:51 Dose: 1,150 units/hr, 23 mls/hr Documented By: SALVADOR Co-signed By: SKB Titration: 04/16/23 07:50 Dose: 0 units/hr, 0 mls/hr Documented By: SALVADOR Co-signed By: AM Titration: 04/16/23 00:51 Dose: 1,400 units/hr, 28 mls/hr Documented By: MARIA FERNANDA Co-signed By: JAMARCUS Titration: 04/15/23 23:49 Dose: 0 units/hr, 0 mls/hr Documented By: MARIA FERNANDA Co-signed By: KMS Admin: 04/15/23 16:37 Dose: 1,600 units/hr, 32 mls/hr Documented By: SALVADOR Co-signed By: ROXY Potassium Chloride (Potassium Chloride Crtab 20 Meq Tabcr) 20 meq PO ONE ONE Stop: 04/16/23 08:38 Last Admin: 04/16/23 09:22 Dose: 20 meq Documented By: SALVADOR Description This is a 21 electrode EEG with a single channel dedicated to limited EKG. The electrodes were placed in accordance with the International 10-20 system. REPORT: At the onset of the EEG, the patient is awake. The background activity consist of 10-11 Hz, persistent, posteriorly dominant, moderate amplitude, symmetric and rhythmic activity that is reactive to eye opening. Anteriorly, it consist of a mixture of low voltage indeterminate activity and 15-25 Hz, persistent, low amplitude, symmetric and rhythmic activity. Stepwise intermittent photic stimulation (1-21 Hz) does not induce any abnormalities. Drowsiness is characterized by low amplitude mixed frequency activity, roving eye movements, and decreased eye blinking and muscle artifact. Interpretation IMPRESSION: This is a normal awake and drowsy routine EEG. There is no evidence of focal slowing or epileptiform activity.
[2023-04-17 06:40] LABS: Hematocrit (blood only) 40.1 % (42.0-52.0); Hemoglobin 12.7 g/dl (14.0-18.0); Mean Corpuscular Hemoglobin 31.5 pg (25.0-34.0); Mean Corpuscular Hgb Conc 31.7 g/dL (32.0-36.0); Mean Corpuscular Volume 99.5 fL (80.0-100.0); Mean Platelet Volume 10.6 fL (9.4-12.4); Platelet Count 124 K/uL (130-400); RDW Coefficient of Variation 12.9 % (11.5-14.5); RDW Standard Deviation 47.5 fL (36.4-46.3); Red Blood Count 4.03 M/uL (4.70-6.10); White Blood Count 5.16 K/ul (4.8-10.8)
[2023-04-17 07:21] LABS: BUN Creatinine Ratio 13.4 (10-20); Calcium 9.3 mg/dl (8.6-10.3); Creatinine Clr Calc Pharmacy 49.6 ml/min; Est GFR (African American) 52.9 ml/min; Est GFR (Non-African American) 45.7 ml/min; Magnesium 1.9 mg/dl (1.7-2.4); Potassium 3.7 mmol/L (3.5-5.1)
[2023-04-17] MEDS: hydroCHLOROthiazide 25 MG TAB PO SCH (08:43)
[2023-04-17] MEDS: lisinopril 20 MG TAB PO SCH (08:43)
[2023-04-17] MEDS: ASPIRIN 81 MG ECTAB PO SCH (08:43)
[2023-04-17] MEDS ORDERED: LIDOCAINE 1% LOCAL 20 ML VIAL ONE (12:21)
[2023-04-17] MEDS ORDERED: WATER, STERILE FOR INJ 10 ML VIAL ONE (12:22)
[2023-04-17] MEDS ORDERED: VANCOMYCIN HCL 1000MG/20ML VIAL ONE (12:22)
[2023-04-17] MEDS ORDERED: BUPIVACAINE 0.5 % 5 MG/1 ML PF 10ML VIAL ONE ×3 (12:22→14:13)
--- NOTE | 2023-04-17 13:04 | Cardiology Progress Note ---
Date of Service April 17, 2023 Assessment & Plan (1) Syncope and collapse: (2) Bifascicular block: (3) Bradycardia: Plan IMPRESSION: 82-year-old male presenting with multiple episodes of syncope. EKG revealing sinus rhythm with a trifascicular/biphasicular block and frequent PACs/PVCs. PLAN: Syncope and collapse: No atrial fibrillation seen on EKGs or telemetry. Syncope not due to atrial fibrillation. 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 Anticipated procedure later today Avoid AV zoraida blocking agents. Discussed in detail with patient and Anticipate stress testing post hospital discharge assess exertional dyspnea symptoms Consider low-dose beta-kun after pacemaker given atrial ectopy This chart was completed in part utilizing Speech Voice Recognition Software. Grammatical errors, random word insertions, pronoun errors, and incomplete sentences are an occasional consequence of this system due to software limita tions, ambient noise, and hardware issues. Any formal questions or concerns about the content, text, or information contained within the body of this dictation should be directly addressed to the provider for clarification. Admission and Anticipated Discharge Date Admission Date: April 15, 2023 Subjective Patient was seen and examined, chart, medications, telemetry reviewed No cardiac complaints or issues no dizziness lightheadedness syncope or near syncope. Telemetry with sinus bradycardia, trifascicular block Review of Systems Review of Systems: All systems reviewed & are unremarkable except as noted in Subjective Physical Exam Constitutional: WD/WN, vitals as above no acute distress Eyes: PERRL, conjunctivae normal, anicteric sclerae Neck: normal visual inspection and trachea midline Respiratory: normal respiratory effort, lungs clear to auscultation Cardiovascular: Rate/Rhythm: regular rate and regular rhythm Heart Sounds: normal S1 and normal S2; no murmur Vessels: no JVD Extremities: no edema Skin: no rashes, warm and dry Psychiatric: A+Ox3, euthymic affect Results & Data Vital Signs (Past 12 Hours) Vital Signs Temp Pulse Pulse Resp BP Pulse Ox O2 Del Method 04/17/23 11:15 36.5 C 57 L 18 124/74 94 Room Air 04/17/23 07:49 36.5 C 66 18 114/60 94 Room Air 04/17/23 07:28 59 L 04/17/23 03:00 36.7 C 83 18 115/69 92 Room Air Laboratory Results Laboratory Results - last 24 hr 04/16/23 04/17/23 14:47 06:21 WBC 5.16 RBC 4.03 L Hgb 12.7 L Hct 40.1 L MCV 99.5 MCH 31.5 MCHC 31.7 L RDW Std Deviation 47.5 H RDW Coeff of Frank 12.9 Plt Count 124 L MPV 10.6 Heparin Anti-Xa, Unfract < 0.10 L Sodium 141 Potassium 3.7 Chloride 105 Carbon Dioxide 31 Anion Gap 5 BUN 19 Creatinine 1.42 H Est Cr Clr Drug Dosing 49.6 Est GFR ( Amer) 52.9 Est GFR (Non-Af Amer) 45.7 BUN/Creatinine Ratio 13.4 Glucose 86 Calcium 9.3 Magnesium 1.9
[2023-04-17] MEDS ORDERED: MIDAZOLAM HCL 5 MG/ML 1 ML VIAL ONE (14:31)
[2023-04-17] MEDS ORDERED: fentaNYL citrate PF 100 MCG/2 ML VIAL ONE (14:32)
[2023-04-17] MEDS ORDERED: ceFAZolin 330 MG/ML 1 GM VIAL ONE (14:33)
--- NOTE | 2023-04-17 14:53 | History & Physical Bridge Note ---
Date of Service April 17, 2023 History & Physical Bridge Note I have examined the patient, reviewed the History & Physical and in the interval since the performance of the History & Physical I have noted the following changes of clinical significance: no changes noted; pt with recurrent syncope and trifascicular block-pt for ppm prior to hospital discharge-discussed the procedure and potential risks he expressed an understanding and consents signed.
--- NOTE | 2023-04-17 14:53 | Pre Anesthesia Assessment ---
Date of Service April 17, 2023 Pre Sedation Assessment Vital Signs Temp Pulse Pulse Resp BP Pulse Ox O2 Del Method 04/17/23 12:38 63 04/17/23 11:15 36.5 C 57 L 18 124/74 94 Room Air 04/17/23 07:49 36.5 C 66 18 114/60 94 Room Air 04/17/23 07:28 59 L 04/17/23 03:00 36.7 C 83 18 115/69 92 Room Air 04/17/23 00:04 67 04/16/23 22:00 37 C 92 H 18 113/64 95 Room Air 04/16/23 21:28 Room Air 04/16/23 19:00 36.7 C 67 20 112/66 95 Room Air 04/16/23 15:40 71 04/16/23 15:19 37.2 C 67 16 111/60 94 Room Air Cardiovascular RRR, no murmur, no edema Respiratory normal respiratory effort, lungs clear to auscultation Pre-Sedation Airway Assessment Smoking Status: Former smoker Hx Sleep Apnea: No Hx Difficult Intubation: No Short, Thick Neck: No Thyromental Distance: < 3.5 Finger Breadths Oral Cavity: + Dental Abnormalities Mallampati Class: II ASA: ASA3 Notes The planned sedation has been discussed with the patient. Informed Consent was obtained. I have identified the patient, determined the appropriateness of sedation and have assessed the patient immediately prior to the procedure. All medicine(s) and interventions are by my order.
--- NOTE | 2023-04-17 16:04 | Post Anesthesia Assessment ---
Date of Service April 17, 2023 Post Sedation Assessment Vital Signs Temp Pulse Pulse Resp BP Pulse Ox O2 Del Method 04/17/23 12:38 63 04/17/23 11:15 36.5 C 57 L 18 124/74 94 Room Air 04/17/23 07:49 36.5 C 66 18 114/60 94 Room Air 04/17/23 07:28 59 L 04/17/23 03:00 36.7 C 83 18 115/69 92 Room Air 04/17/23 00:04 67 04/16/23 22:00 37 C 92 H 18 113/64 95 Room Air 04/16/23 21:28 Room Air 04/16/23 19:00 36.7 C 67 20 112/66 95 Room Air Recovery Score Activity: Moves 4 extremities Respiration: Deep Breath/Cough Circulation: +/-20% PreAnes Value Consciousness: Fully Awake Oxygen Saturation: > 92% On Room Air Discharge Sedation Level of Care: Fast Track Phase II Post Sedation Plan On clinical assessment, the patient appears to have tolerated the sedation without complications. Patient is recovering as anticipated. Patient will continue to be monitored by nursing and may be discharged when sedation discharge criteria are met per below protocol. Upon Completions of procedure up to 15 minutes continue every 5 minute vital signs and the P.A.R. score; then discharge to a Phase I or Fast Track to Phase II per the following guidelines: * Discharge Patient to appropriate Phase II area if PAR is 8 or greater or return to pre- procedure baseline. The post - procedure orders will be as directed. * If PAR score is less than 8 or not return to pre-procedure baseline then patient will follow Phase I monitoring till PAR is reached for Phase II. The Phase I may be done in procedure room or may call to secure a Phase I area. * If naloxone or flumazenil are used for reversal, hold in Phase I for continued monitoring from when last reversal dose was given for a minimum of 60 minutes or longer pending the nurse and/or physician discretion of patient condition before discharge to Phase II. Please call the Sedation Physician to re-evaluate and complete post-note for discharge to Phase II area. Do NOT discharge from procedure sedation or Phase 1 until post- sedation evaluation note is complete by procedure /sedation MD Sedation Discharge Instructions to be given to the patient at discharge to home.
--- NOTE | 2023-04-17 16:14 | Operative Report ---
Post Operative Report DICTATED BY:Michelle Alfaro D.O. DATE OF PROCEDURE: 04/17/2023. PREOPERATIVE DIAGNOSES: SSS and RBBB and syncope POSTOPERATIVE DIAGNOSIS: Same PROCEDURE: A dual-chamber rate responsive permanent pacemaker and a peripheral venogram under fluoroscopic guidance. SURGEON: Michelle Alfaro DO ASSISTANTS: None. ANESTHESIA: Monitored conscious sedation administered under my supervision by Kris Jones Start time 14:57, end time 15:58, a total of 2 mg of Versed and 50 mcg of fentanyl. INTRAVENOUS FLUIDS: 80 mL. CONTRAST: 15 mL. ANTIBIOTICS: 2 grams of Ancef. ADDITIONAL MEDICATIONS:None BLOOD LOSS: 50 mL. URINE OUTPUT: Not applicable. SPECIMENS: None. FINDINGS: See below. DRAINS: None. COMPLICATIONS: None. CONDITION: Stable. INDICATIONS: This is a 82-year-old gentleman who has a past medical history for recurrent syncope, SSS and trifasciular block. he was recommended a pacemaker prior to hospital discharge. CONSENT: Consent was obtained prior to the patient going into the electrophysiology lab. The patient was informed of the risks, benefits, and alternatives to the procedure. Risks include, but not limited to, sudden cardiac , cardiac arrhythmias, cerebrovascular accident, myocardial infarction, injury to his blood vessels, chamber of the heart and lung, bleeding and infection. The patient understood these risks and agreed to the procedure as planned. Informed consent was obtained. DESCRIPTION OF PROCEDURE: The patient was brought into electrophysiology lab in a fasting state. He was connected to continuous cardiac monitoring. A timeout was performed to ensure the patient's identity and procedure correctly. He was prepped and draped in the left infraclavicular space in normal surgical standard fashion. Monitored conscious sedation was given throughout the procedure for the patient's comfort level. [place] precautions were maintained throughout the procedure. Prophylactic antibiotics were given prior to incision. A 20 mL of 1% lidocaine and bupivacaine mixture were given in the left deltopectoral groove. An incision was made in the left deltopectoral groove. Blunt dissection was performed down to the pectoralis muscle. Then, using blunt dissection over the pectoralis muscle within the pectoral fascia, a pacemaker pocket was created. Then, a peripheral venogram was performed to identify the axillary vein. Venous axillary access was obtained through a needlestick without any problems. A guidewire was inserted without any resistance. A 6- [place] sheath was inserted over the guidewire without any resistance. Dilator was removed and a second guidewire was inserted through the sheath to allow for retained venous access. Then a 9 [place] sheath was inserted over one of the guidewires. The guidewire and dilator were removed. Then, the [employer]er 3D medium sheath was inserted through the 9-[place]izen [place] sheath over a Glidewire into the right ventricle. The Glidewire and dilator were removed. Then, the left bundle lead was advanced through the sheath and intracardiac electrogram His bundle recordings were attempted when the camera was in ROBLES 10.I never found a clear HIS but had an idea of where it was based on the A-V ratios. I then moved the camera to ROBLES 30 and marked where I estimated the His bundle are was was on my fluoroscopy screen. I came down about 2 cm from this in a line that would extend out to the apex and then started coming on pacing. Once I found an area where I had a nice W formed pace complex in my lead V1, I then moved the camera to KYRGYZ 30. Then the helix was extended into the septum. Then the helix locking tool was placed. Then the lead was screwed further into the septum while pacing by giving slow clockwise turns. The paced complex changed to a nice R' in V1 and the pacing stim to peak QRS in V6 was good. I then gave contrast through the sheath to see how far the lead was into the septum and then I slit the [employer] 3D medium sheath under fluoroscopic guidance and left the 9-Citizen [place] sheath in while I positioned the right atrial lead. A 6-Citizen [place] sheath was inserted over the retained guidewire, the guidewire and dilator removed. The right atrial lead was then advanced into right atrium and positioned into right atrial appendage under fluoroscopic guidance. There was adequate pacing and sensing thresholds and no diaphragmatic stimulation with high output pacing. The 6-Citizen [place] sheath was peeled away and the lead was fixated to the pectoralis muscle using 0 silk suture. The 9-Citizen [place] sheath around the left bundle lead was peeled away and the lead was fixated to pectoralis muscle using 0 silk suture. The pocket was flushed with copious amounts of vancomycin and saline wash and inspected for hemostasis. The leads were then attached to the pulse generator making sure the pins were in appropriate position, passed set screws, and set screws were all tightened. Pulse generator was then placed in the antibiotic pouch followed then by being placed in the pocket, making sure the leads were lying flat beneath the device. The incision was closed in a 3-layer fashion using 2-0 Vicryl interrupted suture, followed by 3-0 Vicryl interrupted suture, followed by 4-0 Monocryl running stitch. Then a primaseal dressing was placed EQUIPMENT: 1. Pulse generator is a Workstir AssCLEAR MRI Model Number [id number] SN: [id number]. 2. Right atrial lead, Liu SJM Tendril STS 8TC SN: [id number] 3. Left bundle lead, Liu SJM Tendril STS 8TC SN: [id number] INTRAPROCEDURAL FINDINGS: 1. Right atrial lead, P waves 3.4 millivolts, impedance 476 ohms, threshold 0.7 volts at 0.4 milliseconds. 2. Left bundle lead, R waves 5.2 millivolts, impedance 570 ohms, threshold 1.2 volts at 0.4 milliseconds. FINAL MEASUREMENTS THROUGH THE DEVICE: 1. Right atrial lead, P waves 2.7millivolts, impedance 530 ohms, threshold 1 volt at 0.4 milliseconds. 2. Left bundle lead, R waves 5.9 millivolts, impedance 510 ohms, threshold 1.25 volts at 0.4 milliseconds. FINAL PARAMETERS: DDDR 60/120, right atrial amplitude 3.5 volts, pulse width 0.4 milliseconds, sensitivity 0.5 millivolts. Left bundle lead amplitude 3.5 volts, pulse width 0.4 milliseconds, sensitivity 2 millivolts. IMPRESSION: Successful dual chamber rate responsive permanent pacemaker under fluoroscopic guidance along with peripheral venogram all under fluoroscopic guidance secondary to SSS, recurrent syncope and RBBB PLAN: Monitor the patient post-procedure. A 12-lead ECG, chest x-ray. He is not to lift the left elbow or left shoulder for 1 month. He cannot lift more than 10 pounds with the left arm for 2 weeks. He is to keep the dressing on and dry until his wound check next week.
--- NOTE | 2023-04-17 17:42 | XRay Report ---
XR chest 1V portable HISTORY: 82 years-old Male s/p ppm ensure no PTX status post placement of a left COMPARISON: 04/15/2023 TECHNIQUE: AP view of the chest FINDINGS: No postprocedural pneumothorax, pleural effusion or airspace consolidation. The bones appear grossly intact. Degenerative changes of the shoulders and spine. IMPRESSION: Status post placement of a dual-lead left subclavian pacer. No postprocedural pneumothora x. ACT 112: Negative or not required by law. The above report was generated using voice recognition software. It may contain grammatical, syntax o r spelling errors. Electronically signed by: Godwin Hurd M.D. 04/17/2023 5:41 PM
--- NOTE | 2023-04-17 18:30 | Hospitalist Progress Note ---
Date of Service April 17, 2023 Assessment & Plan (1) Syncope and collapse: Plan: Recurrent syncope Suspect secondary to conduction system disease First-degree AV block, right bundle branch block, left anterior fascicular block on EKG Bradycardia secondary to above --CT Head: No acute intracranial findings. No calvarial fracture. --ECHO: Sinus bradycardia. Left ventricle is normal in size. Mild concentric LVH. Septal motion is consistent with conduction abnormality. No regional wall motion abnormality. EF 60 to 65%. Grade 1 diastolic dysfunction. Aortic valve sclerosis mild, without significant aortic valvular stenosis. --TSH: Normal --EEG:This is a normal awake and drowsy routine EEG. There is no evidence of focal slowing or epileptiform activity. 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 Cont current therapy. (4) Dyslipidemia: Plan: chronic, stable. Cont home simvastatin. (5) Hypertension: Plan: chronic Continue home medications Monitor Morbid obesity BMI 41 Needs sleep study as outpatient (6) BPH (benign prostatic hyperplasia): Plan: Chronic, stable LUTS symptoms Continue finasteride and terazosin (7) Morbid obesity: Plan: BMI 41 DVT Px: SCDs for now Code Status Full Code Admission and Anticipated Discharge Date Admission Date: April 15, 2023 Subjective Patient is seen and examined at bedside No new complaints Had pacemaker placement today Denies any chest pain, dyspnea, dizziness, nausea, vomiting, abdominal pain Review of Systems Review of Systems: All systems reviewed & are unremarkable except as noted in Subjective Physical Exam Physical Exam: Physical Exam: Vitals signs as noted above General Appearance:Obese, no apparent distress Head: normocephalic, Atraumatic Eyes: normal inspection, EOMI Neck: supple, Trachea midline Respiratory/Chest: Normal breath sounds, CTA, No accessory muscle use Cardiovascular: S1, S2, No murmur Abdomen/GI:Soft, Non tender, Bowel sounds present Extremities/Musculoskeletal:normal inspection, no edema Neurologic/Psych:AAOX3, grossly no focal neurological deficits Skin: normal color, warm Results & Data Results & Data Vital Signs (Past 12 Hours) Vital Signs Temp Pulse Pulse Resp BP BP Pulse Ox 04/17/23 17:32 36.6 C 58 L 16 130/64 93 04/17/23 16:35 36.7 C 64 16 144/77 H 92 04/17/23 16:20 69 18 138/80 98 04/17/23 16:05 75 18 118/68 98 04/17/23 12:38 63 04/17/23 11:15 36.5 C 57 L 18 124/74 94 04/17/23 07:49 36.5 C 66 18 114/60 94 04/17/23 07:28 59 L O2 Del Method 04/17/23 17:32 Room Air 04/17/23 16:35 Room Air 04/17/23 16:20 Room Air 04/17/23 16:05 Room Air 04/17/23 12:38 04/17/23 11:15 Room Air 04/17/23 07:49 Room Air 04/17/23 07:28 Laboratory Results Short CBC 04/17/23 Range/Units 06:21 WBC 5.16 (4.8-10.8) K/ul Hgb 12.7 L (14.0-18.0) g/dl Hct 40.1 L (42.0-52.0) % Plt Count 124 L (130-400) K/uL BMP 04/17/23 06:21 Sodium 141 Potassium 3.7 Chloride 105 Carbon Dioxide 31 BUN 19 Creatinine 1.42 H Glucose 86 Calcium 9.3
[2023-04-17] MEDS: SIMVASTATIN 20 MG TAB PO SCH (20:00)
[2023-04-17] MEDS: TERAZOSIN HCL 5 MG CAP PO SCH (20:00)
[2023-04-17] MEDS: FINASTERIDE 5 MG TAB PO SCH (20:00)
[2023-04-18 07:27] LABS: Hematocrit (blood only) 40.1 % (42.0-52.0); Hemoglobin 13.2 g/dl (14.0-18.0); Mean Corpuscular Hemoglobin 32.1 pg (25.0-34.0); Mean Corpuscular Hgb Conc 32.9 g/dL (32.0-36.0); Mean Corpuscular Volume 97.6 fL (80.0-100.0); Mean Platelet Volume 10.5 fL (9.4-12.4); Platelet Count 115 K/uL (130-400); RDW Coefficient of Variation 13.1 % (11.5-14.5); RDW Standard Deviation 47.3 fL (36.4-46.3); Red Blood Count 4.11 M/uL (4.70-6.10); White Blood Count 6.46 K/ul (4.8-10.8)
[2023-04-18 08:09] LABS: BUN Creatinine Ratio 14.9 (10-20); Calcium 9.4 mg/dl (8.6-10.3); Creatinine Clr Calc Pharmacy 48.2 ml/min; Est GFR (African American) 53.4 ml/min; Est GFR (Non-African American) 46.1 ml/min; Potassium 4.2 mmol/L (3.5-5.1)
[2023-04-18] MEDS: hydroCHLOROthiazide 25 MG TAB PO SCH (09:17)
[2023-04-18] MEDS: lisinopril 20 MG TAB PO SCH (09:17)
[2023-04-18] MEDS: ASPIRIN 81 MG ECTAB PO SCH (09:18)
--- NOTE | 2023-04-18 09:55 | Cardiology Progress Note ---
Date of Service April 18, 2023 Assessment & Plan (1) Syncope and collapse: (2) Bifascicular block: (3) Bradycardia: Plan IMPRESSION: 82-year-old male presenting with multiple episodes of syncope. EKG revealing sinus rhythm with a trifascicular/biphasicular block and frequent PACs/PVCs. PLAN: Syncope and collapse: Pt s/p implantation of dual chamber (RA, and Left bundle leads) Liu pacemaker. Pt feeling well. CXR without PTX. Labs stable. Await remote device interrogation . If stable findings anticipate discharge. Wound check as outpt in 6-10 days. Will arrange. Case reviewed with Dr Castanon for the purpose of coordinating care. Admission and Anticipated Discharge Date Admission Date: April 15, 2023 Subjective Patient seen in cardiology follow up. Feels well. Pain at pacemaker site is well controlled. Telemetry reveals SR in the 90s. Pacing in the 60s noted during sleep last night. Physical Exam Constitutional: WD/WN, vitals as above Respiratory: normal respiratory effort, lungs clear to auscultation Cardiovascular: RRR, no murmur, no edema Chest (Breasts): Chest: + pacemaker Additional Comments: left pacemaker pocket with dressing, which was not removed. Gastrointestinal (Abdomen): normal bowel sounds, soft, nontender, no hepatosplenomegaly Neurologic: PERRL, EOMI, accommodation nl, no face palsy, no dysarthria Results & Data Vital Signs (Past 12 Hours) Vital Signs Temp Pulse Pulse Resp BP Pulse Ox O2 Del Method 04/18/23 07:59 36.8 C 76 14 116/64 94 Room Air 04/18/23 02:36 36.5 C 70 20 100/69 93 Room Air 04/17/23 22:51 36.5 C 79 20 101/60 92 Room Air 04/17/23 22:00 89 Laboratory Results CBC 04/18/23 Range/Units 07:10 WBC 6.46 (4.8-10.8) K/ul RBC 4.11 L (4.70-6.10) M/uL Hgb 13.2 L (14.0-18.0) g/dl Hct 40.1 L (42.0-52.0) % Plt Count 115 L (130-400) K/uL Comprehensive Metabolic Panel 04/18/23 Range/Units 07:10 Sodium 141 (136-145) mmol/L Potassium 4.2 (3.5-5.1) mmol/L Chloride 104 (98-107) mmol/L Carbon Dioxide 32 (21-32) mmol/L BUN 21 (6-23) mg/dl Creatinine 1.41 H (0.6-1.4) mg/dl Glucose 87 (70-99(Fasting)) mg/dl Calcium 9.4 (8.6-10.3) mg/dl Intake and Output 04/17/23 04/18/23 04/18/23 22:59 06:59 14:59 Intake Total 200 / 400 200 / 400 Output Total 550 / 550 Balance 200 / -150 -350 / -150 Intake: Oral 200 / 400 200 / 400 Output: Urine 550 / 550 Other: Weight 111.8 kg Weight Measurement Method Built in [facility] Diagnostic Findings Post pacemaker CXR performed evening of 04/17/23 : no pneumothorax EKG performed 04/17/23 and interpreted independently: SR at 65 bpm, with atrial pacing and long AV delay, bifascicular block is present.
--- NOTE | 2023-04-18 10:11 | Electrocardiogram Report ---
Test Reason : Blood Pressure : / mmHG Vent. Rate : 065 BPM Atrial Rate : 065 BPM P-R Int : 208 ms QRS Dur : 134 ms QT Int : 426 ms P-R-T Axes : 045 -70 057 degrees QTc Int : 443 ms Sinus rhythm with sinus arrhythmia with frequent atrial-paced complexes Right bundle branch block Left anterior fascicular block Bifascicular block Abnormal ECG When compared with ECG of 16-APR-2023 11:27, Electronic atrial pacemaker has replaced Sinus rhythm Confirmed by Glenroy Peters ([id number]) on 04/18/2023 10:11:22 AM Referred By: REFERRED SELF Confirmed By:Glenroy Peters
--- NOTE | 2023-04-18 10:33 | Communication Note ---
Date of Service: April 18, 2023 Neurology Update: EEG normal study with no evidence of epileptiform discharges. MRI brain not completed. Recurrent events most suggestive of syncope. Cardiology suspected underlying conduction system disease and pt is now s/p pacemaker. Recommend neurology outpatient follow-up.
--- NOTE | 2023-04-18 10:39 | Communication Note ---
Date of Service: April 18, 2023 Pacemaker interrogation reviewed . Stable findings. Stable for discharge. Wound check appointment requested, pt will receive phone call. Roberta Jaime.
--- NOTE | 2023-04-18 11:48 | Hospitalist Progress Note ---
Date of Service April 18, 2023 Assessment & Plan (1) Syncope and collapse: Plan: Recurrent syncope Suspect secondary to conduction system disease First-degree AV block, right bundle branch block, left anterior fascicular block on EKG Bradycardia secondary to above --CT Head: No acute intracranial findings. No calvarial fracture. --ECHO: Sinus bradycardia. Left ventricle is normal in size. Mild concentric LVH. Septal motion is consistent with conduction abnormality. No regional wall motion abnormality. EF 60 to 65%. Grade 1 diastolic dysfunction. Aortic valve sclerosis mild, without significant aortic valvular stenosis. --TSH: Normal --EEG:This is a normal awake and drowsy routine EEG. There is no evidence of focal slowing or epileptiform activity. --S/P dual-chamber pacemaker placement by on 04/17/2023 --Appreciate cardiology input Appreciate Neurology Input Needs follow-up with cardiology and Neurology on discharge Prediabetes HbA1c 6.2 [place] [employer] lifestyle changes (2) New onset a-fib: Plan: No A-fib per cardiology IV heparin discontinued (3) CKD (chronic kidney disease), stage III: Plan: chronic, creat is stable at his baseline. Cont current therapy. (4) Dyslipidemia: Plan: chronic, stable. Cont home simvastatin. (5) Hypertension: Plan: chronic Continue home medications Monitor Morbid obesity BMI 41 Needs sleep study as outpatient (6) BPH (benign prostatic hyperplasia): Plan: Chronic, stable LUTS symptoms Continue finasteride and terazosin (7) Morbid obesity: Plan: BMI 41 DVT Px: SCDs Code Status Full Code Disposition Home Admission and Anticipated Discharge Date Admission Date: April 15, 2023 Subjective Patient is seen and examined at bedside States having mild soreness at the site of pacemaker placement Offers no other complaints Discussed with cardiology today Eager to get discharged Denies any chest pain, dyspnea, dizziness, nausea, vomiting, abdominal pain Review of Systems Review of Systems: All systems reviewed & are unremarkable except as noted in Subjective Physical Exam Physical Exam: Physical Exam: Vitals signs as noted above General Appearance:Obese, no apparent distress Head: normocephalic, Atraumatic Eyes: normal inspection, EOMI Neck: supple, Trachea midline Respiratory/Chest: Normal breath sounds, CTA, No accessory muscle use, +Pacer Cardiovascular: S1, S2, No murmur Abdomen/GI:Soft, Non tender, Bowel sounds present Extremities/Musculoskeletal:normal inspection, no edema Neurologic/Psych:AAOX3, grossly no focal neurological deficits Skin: normal color, warm Results & Data Results & Data Vital Signs (Past 12 Hours) Vital Signs Temp Pulse Resp BP Pulse Ox O2 Del Method 04/18/23 11:25 36.7 C 63 16 115/67 94 Room Air 04/18/23 07:59 36.8 C 76 14 116/64 94 Room Air 04/18/23 02:36 36.5 C 70 20 100/69 93 Room Air Laboratory Results Short CBC 04/18/23 Range/Units 07:10 WBC 6.46 (4.8-10.8) K/ul Hgb 13.2 L (14.0-18.0) g/dl Hct 40.1 L (42.0-52.0) % Plt Count 115 L (130-400) K/uL BMP 04/18/23 07:10 Sodium 141 Potassium 4.2 Chloride 104 Carbon Dioxide 32 BUN 21 Creatinine 1.41 H Glucose 87 Calcium 9.4
--- NOTE | 2023-04-18 12:04 | Discharge Summary ---
Date of Service April 18, 2023 Admission HPI Per Admitting Provider 82 yo M presents wtih syncope and witnessed shaking by his which appeared consistent with possible seizure like activity. He was found to be in new onset atrial fibrillation on workup today and was started on a heparin drip. Heart rate is in the 70s without AV zoraida blockers. Trop mildly elevated at 24 without reports of chest pain. No SOB. No PEREZ. No history of seizures, and is notably on buproprion which may lower the seizure threshold. reports just sat down to the table to eat, and patient had eaten part of the sandwich. He suddenly threw his head back, arms out and he was making a circular motion with his hands and making a noise while he was breathing, puffing his face out. He was not responsive to calling his name out initially. picked his head up off the table. He awoke but looked dazed and confused. He was able to speak to his without speech deficits and walk around eventually. From the patient's perspective, he reports a falling episode with dizziness and a feeling of queasiness prior to passing out today (not with other episodes). Other episodes include an episode when he was in bed reading, he passed out. Also, happened while he was on the floor fixing the refrigerator when he had a period of transient loss of consciousness without warning. He awoke and was clear. Most recently, he was driving home from [place] 2-3 weeks ago and had a spell as he was driving. He said "everything just gets black". states he looked he fell asleep from her perspective. This was while the car was in motion. He responded well to her voice. drove the rest of the way home and patient was fine after this but has quit driving. He reports shortness of breath ongoing for the past couple of years, worse in the last year. No chest pain, no headaches, no abd pain, no changes with bowel movement, chronic urinary issues with BPH without recent changes. No cough, pt reports a recent cold for 3-4 days recently with coughing, runny nose, phlegm on his chest (was taking mucinex OTC). Reports those symptoms were resolved one week ago. Functional status is poor, walks to the mail but mostly sedentary. FEels like the shortness of breath is limiting for him. Walking briskly can cause him shortness of breath. Denies chest pain with exertion. No PEREZ when awakens, but feels groggy until afternoon typically. Reports easily falling asleep when he sits down in his chair in the evening. Denies a known h/o MELE and denies having a sleep study in the past. Admission Exam Per Admitting Provider CONSTITUTIONAL: obese, vitals as above, generally well-appearing EYES: pupils are round and equal and reactive, normal conjunctivae, no scleral icterus ENT: external ear and nose normal, MMM NECK: trachea midline, thick neck circumference RESPIRATORY: clear to auscultation bilaterally, no crackles, rales or wheezes, normal respiratory effort CARDIOVASCULAR: regular rate and rhythm, S1 and 2 heard without murmurs, gallops or rubs, no JVD, no peripheral edema CHEST: inspection of chest was normal GASTROINTESTINAL: soft, nontender, ND, no guarding MUSCULOSKELETAL: strength 5/5 throughout, head is normocephalic and atraumatic, SKIN: warm and dry NEUROLOGIC: CN 2-12 grossly intact, no sensory deficit, normal cognition, normal speech, no tremor PSYCHIATRIC: alert cooperative and oriented to person, place and time. Euthymic mood, makes good eye contact, language grossly intact, recent and remote memory grossly intact. Principal Diagnosis Recurrent syncope Prediabetes Discharge Data Allergies Allergy/AdvReac Type Severity Reaction Status Date / Time Sulfa (Sulfonamide Allergy Unknown UNKNOWN Unverified 04/15/23 15:42 Antibiotics) Consultations 04/15/23 16:36 ED Decision to Admit Stat 04/15/23 17:31 Consult Neurology Routine 04/15/23 20:26 Consult Cardiology Routine Procedures Performed Operation Date: 04/17/23 14:30 Actual Procedures p Pacer with A/V Leads (Dual) - Michelle Alfaro DO s Venogram, Unilateral - Michelle Alfaro DO s Bundle of his Recording - Michelle Alfaor DO Ordered Studies 04/15/23 15:11 CT head/brain wo con Stat 04/17/23 07:15 EP Lab Images for PACS ONCE Laboratory Results WBC 6.46 K/ul (4.8-10.8) 04/18/23 07:10 RBC 4.11 M/uL (4.70-6.10) L 04/18/23 07:10 Hgb 13.2 g/dl (14.0-18.0) L 04/18/23 07:10 Hct 40.1 % (42.0-52.0) L 04/18/23 07:10 MCV 97.6 fL (80.0-100.0) 04/18/23 07:10 MCH 32.1 pg (25.0-34.0) 04/18/23 07:10 MCHC 32.9 g/dL (32.0-36.0) 04/18/23 07:10 RDW Std Deviation 47.3 fL (36.4-46.3) H 04/18/23 07:10 RDW Coeff of Frank 13.1 % (11.5-14.5) 04/18/23 07:10 Plt Count 115 K/uL (130-400) L 04/18/23 07:10 MPV 10.5 fL (9.4-12.4) 04/18/23 07:10 Immature Gran % (Auto) 0.3 % 04/15/23 15:52 Neut % (Auto) 82.8 % 04/15/23 15:52 Lymph % (Auto) 8.9 % 04/15/23 15:52 Green % (Auto) 7.1 % 04/15/23 15:52 Eos % (Auto) 0.3 % 04/15/23 15:52 Baso % (Auto) 0.6 % 04/15/23 15:52 Neut # (Auto) 5.21 K/uL (1.40-6.50) 04/15/23 15:52 Lymph # (Auto) 0.56 K/uL (1.20-3.40) L 04/15/23 15:52 Green # (Auto) 0.45 K/uL (0.11-0.59) 04/15/23 15:52 Eos # (Auto) 0.02 K/uL (0.00-0.50) 04/15/23 15:52 Baso # (Auto) 0.04 K/uL (0.00-0.20) 04/15/23 15:52 Immature Gran # (Auto) 0.02 K/uL (0.01-0.20) 04/15/23 15:52 Absolute Nucleated RBC Cancelled 04/15/23 14:34 Nucleated RBC % (auto) Cancelled 04/15/23 14:34 Neutrophils % (Manual) Cancelled 04/15/23 14:34 Band Neutrophils % Cancelled 04/15/23 14:34 Lymphocytes % (Manual) Cancelled 04/15/23 14:34 Prolymphocyte % Cancelled 04/15/23 14:34 Reactive Lymphs % (Man) Cancelled 04/15/23 14:34 Monocytes % (Manual) Cancelled 04/15/23 14:34 Eosinophils % (Manual) Cancelled 04/15/23 14:34 Basophils % (Manual) Cancelled 04/15/23 14:34 Metamyelocytes % (Man) Cancelled 04/15/23 14:34 Myelocytes % (Man) Cancelled 04/15/23 14:34 Promyelocytes % (Man) Cancelled 04/15/23 14:34 Blast Cells % (Manual) Cancelled 04/15/23 14:34 Plasma Cell % (Manual) Cancelled 04/15/23 14:34 Other Cells % Cancelled 04/15/23 14:34 Nucleated RBC % Cancelled 04/15/23 14:34 Neutrophils # (Manual) Cancelled 04/15/23 14:34 Band Neutrophils # Cancelled 04/15/23 14:34 Total Absolute Neuts Cancelled 04/15/23 14:34 Lymphocytes # (Manual) Cancelled 04/15/23 14:34 Prolymphocyte # Cancelled 04/15/23 14:34 Reactive Lymphs # Cancelled 04/15/23 14:34 Total Abs Lymphocytes Cancelled 04/15/23 14:34 Monocytes # (Manual) Cancelled 04/15/23 14:34 Eosinophils # (Manual) Cancelled 04/15/23 14:34 Basophils # (Manual) Cancelled 04/15/23 14:34 Metamyelocytes # (Man) Cancelled 04/15/23 14:34 Myelocytes # (Manual) Cancelled 04/15/23 14:34 Promyelocytes # (Man) Cancelled 04/15/23 14:34 Blast Cells # (Man) Cancelled 04/15/23 14:34 Plasma Cell # (Manual) Cancelled 04/15/23 14:34 Other Cells # Cancelled 04/15/23 14:34 Nucleated RBCs # (Man) Cancelled 04/15/23 14:34 Hypersegmented Neuts Cancelled 04/15/23 14:34 Hyposegmented Neuts Cancelled 04/15/23 14:34 Hypogranular Neuts Cancelled 04/15/23 14:34 Large Granular Lymphs Cancelled 04/15/23 14:34 # Lrg Granular Lymphs Cancelled 04/15/23 14:34 Hairy Cells Cancelled 04/15/23 14:34 Smudge Cells Cancelled 04/15/23 14:34 Toxic Granulation Cancelled 04/15/23 14:34 Toxic Vacuolation Cancelled 04/15/23 14:34 Dohle Bodies Cancelled 04/15/23 14:34 Mireille Rods Cancelled 04/15/23 14:34 Platelet Estimate Cancelled 04/15/23 14:34 Hypogranular Platelets Cancelled 04/15/23 14:34 Giant Platelets Cancelled 04/15/23 14:34 Platelet Satelliting Cancelled 04/15/23 14:34 RBC Morphology Cancelled 04/15/23 14:34 Polychromasia Cancelled 04/15/23 14:34 Hypochromasia Cancelled 04/15/23 14:34 Poikilocytosis Cancelled 04/15/23 14:34 Basophilic Stippling Cancelled 04/15/23 14:34 Anisocytosis Cancelled 04/15/23 14:34 Microcytosis Cancelled 04/15/23 14:34 Macrocytosis Cancelled 04/15/23 14:34 Spherocytes Cancelled 04/15/23 14:34 Pappenheimer Bodies Cancelled 04/15/23 14:34 Sickle Cells Cancelled 04/15/23 14:34 Target Cells Cancelled 04/15/23 14:34 Tear Drop Cells Cancelled 04/15/23 14:34 Ovalocytes Cancelled 04/15/23 14:34 Stomatocytes Cancelled 04/15/23 14:34 [place] Bodies Cancelled 04/15/23 14:34 Echinocytes Cancelled 04/15/23 14:34 Acanthocytes (Spur) Cancelled 04/15/23 14:34 Rouleaux Cancelled 04/15/23 14:34 RBC Agglutinates Cancelled 04/15/23 14:34 Schistocytes Cancelled 04/15/23 14:34 Sezary Cell Cancelled 04/15/23 14:34 PT 11.3 Seconds (9.0-12.0) 04/15/23 15:50 INR 1.0 (0.9-1.1) 04/15/23 15:50 APTT 24 Seconds (21-31) 04/15/23 15:50 PTT Ratio 0.9 04/15/23 15:50 Heparin Anti-Xa, Unfract < 0.10 IU/ml (0.3-0.7) L 04/16/23 14:47 Sodium 141 mmol/L (136-145) 04/18/23 07:10 Potassium 4.2 mmol/L (3.5-5.1) 04/18/23 07:10 Chloride 104 mmol/L (98-107) 04/18/23 07:10 Carbon Dioxide 32 mmol/L (21-32) 04/18/23 07:10 Anion Gap 5 (3-11) 04/18/23 07:10 BUN 21 mg/dl (6-23) 04/18/23 07:10 Creatinine 1.41 mg/dl (0.6-1.4) H 04/18/23 07:10 Est Cr Clr Drug Dosing 48.2 ml/min 04/18/23 07:10 Est GFR ( Amer) 53.4 ml/min 04/18/23 07:10 Est GFR (Non-Af Amer) 46.1 ml/min 04/18/23 07:10 BUN/Creatinine Ratio 14.9 (10-20) 04/18/23 07:10 Glucose 87 mg/dl (70-99(Fasting)) 04/18/23 07:10 Estimat Average Glucose 131 mg/dl 04/16/23 06:22 Hemoglobin A1c 6.2 % (4.5-5.6) H 04/16/23 06:22 Calcium 9.4 mg/dl (8.6-10.3) 04/18/23 07:10 Magnesium 2.0 mg/dl (1.7-2.4) 04/18/23 07:10 Total Bilirubin 0.6 mg/dl (0.2-1.0) 04/15/23 14:34 AST 24 U/L (13-39) 04/15/23 14:34 ALT 18 U/L (7-52) 04/15/23 14:34 Alkaline Phosphatase 66 U/L (34-104) 04/15/23 14:34 Troponin I High Sens 34.2 pg/ml (0-20) H 04/16/23 06:22 B-Natriuretic Peptide 72 pg/ml (0-100) 04/15/23 15:50 Total Protein 6.7 gm/dl (6.0-8.3) 04/15/23 14:34 Albumin 4.0 gm/dl (3.4-5.0) 04/15/23 14:34 Globulin 2.7 gm/dl (2.5-4.0) 04/15/23 14:34 Albumin/Globulin Ratio 1.5 (0.9-2) 04/15/23 14:34 TSH 3.009 uIu/ml (0.300-4.500) 04/15/23 14:34 Urine Color Yellow 04/15/23 16:50 Urine Appearance Clear (Clear) 04/15/23 16:50 Urine pH 5.5 (4.5-7.5) 04/15/23 16:50 Ur Specific [place] 1.012 (1.000-1.030) 04/15/23 16:50 Urine Protein Negative (Negative) 04/15/23 16:50 Urine Glucose (UA) Negative (Negative) 04/15/23 16:50 Urine Ketones Negative (Negative) 04/15/23 16:50 Urine Blood Negative (Negative) 04/15/23 16:50 Urine Nitrite Negative (Negative) 04/15/23 16:50 Urine Bilirubin Negative (Negative) 04/15/23 16:50 Urine Urobilinogen Negative (Negative) 04/15/23 16:50 Ur Leukocyte Esterase Negative (Negative) 04/15/23 16:50 Blood Parasites ID Cancelled 04/15/23 14:[address] 04/15/23 15:11 CT OF THE HEAD WITHOUT CONTRAST CLINICAL HISTORY: syncope, found to have a fib, b/l UE shaking COMPARISON STUDY: No previous studies for comparison. CT DOSE: 625.8 mGy.cm TECHNIQUE: Helical axial images of the head were obtained without IV contrast. Automated exposure control was utilized for the study. A dose lowering technique was utilized adhering to the principles of ALARA. FINDINGS: No acute intracranial hemorrhage, midline shift or mass effect is present. There is mild atrophy. White matter hypodensity suggests small vessel disease. The ventricular system is unremarkable. The basal cisterns are patent. No extra-axial collections are present. There are no findings to suggest acute dural sinus thrombosis or acute territorial infarct. No significant calvarial abnormalities are present. Visualized portions of the sinuses and mastoid air cells are clear. IMPRESSION: 1. No acute intracranial findings. 2. No calvarial fracture. ACT 112: Negative or not required by law. Electronically signed by: Jourdan Christian M.D. 04/15/2023 3:38 PM Chest X-Ray 04/17/23 18:00 XR chest 1V portable HISTORY: 82 years-old Male s/p ppm ensure no PTX status post placement of a left COMPARISON: 04/15/2023 TECHNIQUE: AP view of the chest FINDINGS: No postprocedural pneumothorax, pleural effusion or airspace consolidation. The bones appear grossly intact. Degenerative changes of the shoulders and spine. IMPRESSION: Status post placement of a dual-lead left subclavian pacer. No postprocedural pneumothorax. ACT 112: Negative or not required by law. The above report was generated using voice recognition software. It may contain grammatical, syntax or spelling errors. Electronically signed by: Godwin Hurd M.D. 04/17/2023 5:41 PM Hospital Course (1) Syncope and collapse: Recurrent syncope Suspect secondary to conduction system disease First-degree AV block, right bundle branch block, left anterior fascicular block on EKG Bradycardia secondary to above --CT Head: No acute intracranial findings. No calvarial fracture. --ECHO: Sinus bradycardia. Left ventricle is normal in size. Mild concentric LVH. Septal motion is consistent with conduction abnormality. No regional wall motion abnormality. EF 60 to 65%. Grade 1 diastolic dysfunction. Aortic valve sclerosis mild, without significant aortic valvular stenosis. --TSH: Normal --EEG:This is a normal awake and drowsy routine EEG. There is no evidence of focal slowing or epileptiform activity. 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 Cont current therapy. (4) Dyslipidemia: chronic, stable. Cont home simvastatin. (5) Hypertension: chronic Continue home medications Monitor Morbid obesity BMI 41 Needs sleep study as outpatient (6) BPH (benign prostatic hyperplasia): Chronic, stable LUTS symptoms Continue finasteride and terazosin (7) Morbid obesity: BMI 41 DVT Px: SCDs Code Status Full Code Disposition Home Total Time Total Time Spent Total Time Spent (In Minutes): 55 minutes Discharge Plan Discharge Items Patient Disposition: Home - Self-Care Reason For Visit: SYNCOPE, NEW ONSET AFIB Discharge Diagnosis: Recurrent syncope Prediabetes Activity: As commented below Activity Comment: do not raise the left elbow over the left shoulder for 1 month Lifting: No more than 10 pounds Lifting Comment: do not lift more than 10 pounds with the left arm for 2 weeks Bathing: Keep incision dry Bathing Comment: keep dressing on & dry until wound check Non-emergency contact: Primary Care Provider, Data Coder Operator and Neurologist Call non-emergency contact if: you have any medication questions, your symptoms worsen, your pain is concerning for you and you have a fever Follow-up/Referrals: Rad Melgar MD [Primary Care Provider] - (Date & Time 04/23/2023 2:00 PM Provider Rina Godoy MD [facility] ) Michelle Alfaro DO [Physician] - (The Cardiology office will contact you for a follow up appointment.) Diet: Heart Healthy [place] Attending Provider Instructions: Follow-up with your Primary care physician on 04/23/2023 2:00 PM Follow-up with your Data Coder Operator for Device and wound check at [facility] on Thursday04/28/2023 at 9:30 Follow up with your Neurologist Dr. Areli Hercules in 3-4 weeks as recommended by your neurologist. Seek immediate medical attention if your symptoms reoccur or worsen Please take all medications as instructed on discharge list below. Please call if you have any questions or problems. You can reach a [facility] hospitalist on duty at [facility] 24 hours a day by calling [phone] Addtl Clinical Business Manager Provider Instructions: ACTIVITY RECOMMENDATIONS: * Do not raise affected arm over head for 2 weeks. SPECIAL CARE INSTRUCTIONS: * If bleeding occurs, apply direct pressure to area for 5 minutes. * Call your doctor if you have severe pain, fever, drainage or bleeding at site. * Keep dressing on and dry for 48 hours then remove. * Keep any scheduled doctor's appointment. * Implant Card - hand held device with website information given. SKIN IRRITATION: * You may experience some redness and/or swelling in the area where radiation was administered. If any skin irritation occurs, please contact your family physician. FOLLOW UP VISIT: Keep any scheduled doctor appointments. Pending Studies at Discharge: No Stand-Alone Forms: My [facility] Updater, Smoking Cessation Medications and DC Order Prescriptions: Continued finasteride 5 mg tablet 5 mg PO QPM bupropion HCl 150 mg tablet sustained-release 12 hr 300 mg PO QAM simvastatin 20 mg tablet 20 mg PO HS hydrochlorothiazide 25 mg tablet 25 mg PO DAILY lisinopril 20 mg tablet 20 mg PO QAM terazosin 10 mg capsule 10 mg PO HS Discharge Orders: Discharge Order (Routine); Ordered 04/18/23 Ordered By: Ranjan Chavez/Other Patient Handouts: Prediabetes, 5 Steps for Eating Healthier Admission Data Admit Date/Time: 04/15/23 17:31 Attending Provider: Ranjan Castanon Admit Provider: Brenda Peña Primary Care Provider: Rad Melgar Other Providers: Brenda Peña; Diomedes,June; Derek Leon
== END 2023-04-18 16:19 | disposition home or self-care (01) | DRG 243 ==
LOC: ED 14:17 → EDINP 17:31 → SUATTDRO 17:31 → 2N 20:26 → 2S 04-17 12:24
DX: Z88.2 Allergy status to sulfonamides; I12.9 Hypertensive chronic kidney disease with stage 1 through stage 4 chronic kidney disease, or unspecified chronic kidney disease; E78.5 Hyperlipidemia, unspecified; Z68.41 Body mass index [BMI] 40.0-44.9, adult; Z79.899 Other long term (current) drug therapy; R73.03 Prediabetes; R55 Syncope and collapse; E66.01 Morbid (severe) obesity due to excess calories; N40.0 Benign prostatic hyperplasia without lower urinary tract symptoms; I45.2 Bifascicular block; N18.30 Chronic kidney disease, stage 3 unspecified; I48.91 Unspecified atrial fibrillation; Z87.891 Personal history of nicotine dependence